=== PATIENT | female | born 1950 | race Caucasian/White ===

== ENCOUNTER → 2020-12-22 11:33 | Outpatient (CLI) | payer MEDICARE, SELFPAY ==
--- NOTE | ~2020-12-22 | XR_ITS ---
EXAMINATION: XR knee LT min 4V DATE: 12/22/2020 12:08 INDICATION: Left knee pain TECHNIQUE: Four views of the left knee were obtained. COMPARISON: None. FINDINGS: Alignment is normal. No fracture or osteochondral lesion. There is moderate osteoarthritis in the patellofemoral compartment and mild osteoarthritis in the remaining compartments. No joint eff usion/synovitis. Soft tissues are unremarkable. IMPRESSION: 1. Osteoarthritis without acute osseous abnormality. Reviewed, dictated and finalized at location B.
--- NOTE | ~2020-12-22 | XR_ITS ---
EXAMINATION: XR knee RT min 4V DATE: 12/22/2020 12:08 INDICATION: Right knee pain TECHNIQUE: Four views of the right knee were obtained. COMPARISON: None. FINDINGS: Alignment is normal. No fracture or osteochondral lesion. There is advanced osteoarthritis in the medial patellofemoral compartment and mild osteoarthritis in the remaining compartments. No rg int effusion/synovitis. Calcified atherosclerosis is noted. IMPRESSION: 1. Advanced osteoarthritis in the medial patellofemoral compartment without acute osseous abnormality . Reviewed, dictated and finalized at location B. IMPRESSION: 1. Advanced osteoarthritis in the medial patellofemoral compartment without acu te osseous abnormality.
== END ==
PROVIDERS: Visit Provider Physician Assistant
DX: M17.0 Bilateral primary osteoarthritis of knee (principal)
CPT/HCPCS: 73564

== ENCOUNTER → 2021-02-13 10:21 | Outpatient (CLI) | payer MEDICARE, SELFPAY ==
--- NOTE | ~2021-02-13 | DEXA_ITS ---
Bone Density Report Name: Laura Eddy Age: 70 Sex: Female Ethnicity: White Date of : 1950 Indication: postmenopausal; screening for osteoporosis; Referring Provider: Jovita Nunez Study: Bone densitometry was performed. Exam Date: February 13, 2021 Accession number: [id number] Bone Density: Region BMD T-score Z-score Classification AP Spine (L1-L4) 0.983 -0.6 1.4 Normal Femoral Neck (Left) 0.664 -1.7 0.1 Osteopenia Total Hip (Left) 0.849 -0.8 0.7 Normal Femoral Neck (Right) 0.631 -2.0 -0.2 Osteopenia Total Hip (Right) 0.802 -1.1 0.3 Osteopenia Total Hip Mean 0.826 -1.0 0.5 Normal World Health Organization criteria for BMD impression classify patients as: Normal (T-score at or above -1.0), Osteopenia (T-score between -1.0 and -2.5), or Osteoporosis (T-score at or below -2.5). 10-year Fracture Risk(1): Major Osteoporotic Fracture 11% Hip Fracture 1.8% Reported Risk Factors: [place] (), Neck BMD=0.631, BMI=34.1 (1) FRAX(R) Version 3.08. Fracture probability calculated for an untreated patient. Fracture probability may be lower if the patient has received treatment. Clinical Information Provided by Patient: Has used the following medications: Vitamin D Patient maximum height was 60 Menopause Age: 37 No regular weight bearing exercise Drinks caffeinated beverages Onset of menses at age 17 Number of children 2 Impression: The patient has low bone mass, based on the Right Femoral Neck T-score. The patient has an estimated ten-year risk of hip fracture of 1.8% and an estimated ten-year risk of major fracture of 11%, based on the WHO FRAX algorithm. Discussion: BONE DENSITY IS LOW AT ONE OR MORE SKELETAL SITES. This patient's lowest T-score is low at one or more skeletal sites. It meets the World Health Organization's (WHO) criteria for ?low bone mass? (T-score between -1.0 and -2.5). The patient's 10-year risk of fracture as calculated by FRAX is less than the threshold where pharmacological therapy is recommended by the National Osteoporosis Foundation (NOF). However, all treatment decisions require clinical judgment and consideration of individual patient factors, including patient preferences, comorbidities, previous drug use, risk factors not captured in the FRAX model (e.g., frailty, falls, vitamin D deficiency, increased bone turnover, interval significant decline in bone density) and possible under or overestimation of fracture risk by FRAX. The patient should follow a healthful lifestyle (good nutrition with adequate calcium and vitamin D, and appropriate weight-bearing exercise). Follow-Up: Consider repeating this study in 2 to 3 years to reassess this patient's status, or sooner if there is some new clinical indication. Reported by: JEFF on 02/13/2021
== END ==
PROVIDERS: PCP Family Medicine; Visit Provider Physician Assistant
DX: Z78.0 Asymptomatic menopausal state (principal); M85.89 Other specified disorders of bone density and structure, multiple sites
CPT/HCPCS: 77080

== ENCOUNTER 2021-09-12 12:57 | Outpatient (CLI) | payer MEDICARE, SELFPAY ==
[2021-09-12 13:20] LABS: Basophils Absolute Auto 0.1 K/mm3 (0.0-0.1); Basophils Percent Auto 1.1 % (0.2-1.2); Eosinophils Absolute Auto 0.2 K/mm3 (0-0.3); Hemoglobin 13.3 g/dL (12.0-15.0); Immature Granulocyte Absolute 0.01 K/mm3 (0.00-0.031); Immature Granulocyte Percent A 0.2 % (0-0.5); Lymphocytes Absolute Auto 1.68 K/mm3 (0.9-3.2); Lymphocytes Percent Auto 36.3 % (18.3-44.2); Mean Corpuscular HGB Conc 33.3 g/dl (32-36); Mean Corpuscular Hemoglobin 32.4 pg (26-34); Mean Corpuscular Volume 97.3 fl (80-100); Mean Platelet Volume 10.9 fl (7.4-10.4); Monocytes Absolute Auto 0.5 K/mm3 (0.1-0.6); Monocytes Percent Auto 10.4 % (2.6-8.5); Neutrophils Absolute Auto 2.2 K/mm3 (1.3-6.7); Platelet Count Result 185 k/mm3 (150-375); Red Blood Count 4.11 M/mm3 (4.2-5.4); Red Cell Distribution Width 11.8 % (11.5-14.5); White Blood Count 4.6 K/mm3 (4.5-10.0)
[2021-09-12 13:34] LABS: Alanine Aminotransferase 21 U/L (4-35); Albumin Level 4.6 g/dL (3.5-5.1); Alkaline Phosphatase 84 U/L (38-126); Anion Gap 6 mmol/L (8-16); Aspartate Amino Transferase 31 U/L (14-36); Bilirubin,Total 0.4 mg/dL (0.2-1.3); Blood Urea Nitrogen 26 mg/dL (7-17); Calcium 8.8 mg/dL (8.4-10.2); Carbon Dioxide 27 mmol/L (22-30); Chloride 103 mmol/L (98-107); Cholesterol 128 mg/dL (0-200); Estimated Glomerular Filt Rate 34; Glucose 107 mg/dL (65-110); HDL Direct 46 mg/dL; Potassium 4.6 mmol/L (3.4-5.0); Sodium 136 mmol/L (137-145); Triglycerides 63 mg/dL (<150)
[2021-09-12 13:45] LABS: LDL Cholesterol Direct 53 mg/dL
[2021-09-12 14:25] LABS: Vitamin B12 > 1000.0 pg/mL (239-931)
== END 2021-09-12 12:58 | disposition home or self-care (01) ==
PROVIDERS: PCP Family Medicine; Visit Provider Family Medicine
DX: I12.9 Hypertensive chronic kidney disease with stage 1 through stage 4 chronic kidney disease, or unspecified chronic kidney disease (principal); K21.9 Gastro-esophageal reflux disease without esophagitis; M85.80 Other specified disorders of bone density and structure, unspecified site
CPT/HCPCS: 36415; 80053; 80061; 82306; 82607; 82728; 85025

== ENCOUNTER 2022-01-25 08:52 | Outpatient (CLI) | payer MEDICARE, SELFPAY ==
--- NOTE | 2022-02-22 19:41 | WPDSLEEPSTUD ---
Sleep Study Date of Study: 01/25/22 Ordering Provider: Romeo Schofield MD Interpreting Physician: Rylee Rolon DO Sleep Study Type: CPAP Titration Height: 1.52 m Weight: 72.575 kg Body Mass Index: 31.2 Neck Circumference (inches): 14.5 [place]: 9 Reason for Sleep Study The patient had a polysomnogram on December 31, 2021 that showed an AHI of 11.3 when using a 4% criteria, a central apnea index of 0.7 and a REM AHI of 67.1. Sleep History The patient is a 71-year-old female with hypertension, GERD, hyperlipidemia, anxiety and recently diagnosed KUMAR that had a PAP Titration study ordered by her primary care physician. the patient denies awakening from sleep short of breath. She denies awakening at night with heartburn, belching or cough. She rarely snores and is never loud enough that others complain. She occasionally has trouble sleeping when she has a cold. She denies waking up gasping for air throughout the night. She denies having breathing problems at night observed by herself or others. She denies sweating excessively at night. She denies having heart palpitations or irregular heartbeats during the night. She denies falling asleep during the day and while driving. She denies sleep paralysis, cataplexy and hypnagogic / hypnopompic hallucinations. He denies having trouble at school or work due to sleepiness. She denies feeling afraid of going to sleep. She denies having nightmares. She denies remembering her dreams. She denies having racing thoughts. She rarely feels sad or depressed. She denies having anxiety. She denies having muscular tension. She denies noticing parts of her body jerk. She denies kicking during the night. He denies having crawling and aching feelings in her legs as well as leg pain during the night. The patient goes to bed between 10 to 10:30 p.m. on both weekdays and weekends. It takes her 2 hours to fall asleep. She wakes up once throughout the night for unknown reasons. He wakes up at 8:00 a.m. on both weekdays and weekends. She will stay in her bed for a few minutes after waking up in the morning. She currently lives with . She does not consume any caffeinated beverages within 2 hours of bedtime. She does not engage in physical exercise before bedtime. She will watch television before falling asleep. She will take naps in the afternoon or the evening and they are refreshing. She drinks 1 cup of coffee per day and 1 can of Coke per day. He denies tobacco, alcohol and recreational drug use. [facility] Past Medical History Medical History History of measles History of mumps Kidney disease with benign hypertension Macular degeneration Family History Family History Mother Hypertension Family history of Alzheimer's disease Father Family history of elevated blood lipids Family history of cardiovascular disease Acute myocardial infarction Sibling Family history of cardiovascular disease Acute myocardial infarction Other Family history of malignant neoplasm Family history of malignant neoplasm of male breast Social History Social History Smoking status: Never smoker Alcohol intake: never Medications Home Medications Medication Instructions Recorded Confirmed Type buspirone 10 mg tablet See Rx Instructions .Route 04/12/21 02/21/22 Rx .COMPLEX #360 tabs hydrochlorothiazide 25 mg tablet See Rx Instructions .Route 04/12/21 02/21/22 Rx .COMPLEX #90 tabs rosuvastatin 5 mg tablet See Rx Instructions .Route 04/12/21 02/21/22 Rx .COMPLEX #90 tabs citalopram 20 mg tablet 40 mg PO DAILY #180 tabs 09/18/21 02/21/22 Rx trazodone 50 mg tablet See Rx Instructions .Route 11/13/21 02/21/22 Rx .COMPLEX #90 tabs famotidine 20 mg tablet 20 mg PO BID #180 tabs 11/23/21 02/21/22 Rx melox
[2022-02-22 19:56] VITALS: BMI 31.2
== END 2022-01-26 07:16 | disposition home or self-care (01) ==
LOC: ANHCSM 08:53
PROVIDERS: PCP Family Medicine; Visit Provider Family Medicine
DX: G47.33 Obstructive sleep apnea (adult) (pediatric) (principal)
CPT/HCPCS: 95811

== ENCOUNTER 2022-09-25 12:24 | Outpatient (CLI) | payer MEDICARE, SELFPAY ==
--- NOTE | 2022-09-25 12:44 | ECHO_ITS ---
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 Strain analysis performed. Summary 1. Complete two-dimensional, color flow and Doppler transthoracic echocardiogram is performed. 2. Left ventricular chamber dimension is normal. 3. Left ventricular systolic function is normal, estimated at 60-65%. 4. The left ventricular diastolic function is abnormal. 5. E/e' 10 is mildly elevated. 6. Global longitudinal strain is normal at -19.9%. 7. Left atrial chamber dimension is mildly enlarged. 8. There is mild aortic valve sclerosis. 9. The mitral valve has moderately calcified annulus. 10. There is mild mitral valve regurgitation. 11. There is trace tricuspid valve regurgitation. Left Ventricle E/e' 10 is mildly elevated. Global longitudinal strain is normal at -19.9%. Left ventricular chamber dimension is normal. Left ventricular systolic function is normal, estimated at 60-65%. The left ventricular diastolic function is abnormal. Right Ventricle Right ventricular systolic function is normal and with normal TAPSE 2.2 cm. Right ventricular chamber dimension is normal. Left Atria Left atrial chamber dimension is mildly enlarged. Right Atria Right atrial chamber dimension is normal. Aortic Valve The aortic valve is trileaflet. There is mild aortic valve sclerosis. There is no aortic valve stenosis. There is no aortic valve regurgitation. Pulmonic Valve There is no pulmonic regurgitation. Mitral Valve The mitral valve has moderately calcified annulus. There is no mitral valve stenosis. There is mild mitral valve regurgitation. Tricuspid Valve There is trace tricuspid valve regurgitation. RVSP is not calculated due to an inadequate TR jet. Pericardium/Pleural There is no pericardial effusion. Inferior Vena Cava Normal inferior vena cava with >50% collapse upon inspiration consistent with normal right atrial pressure, 5 mmHg. Aorta The aortic root size at the sinus of Valsalva is normal. Left Ventricular Outflow Tract Name Value Normal LVOT 2D LVOT Diameter 2.0 cm LVOT Doppler LVOT Peak Gradient 5 mmHg LVOT Mean Gradient 2 mmHg LVOT VTI 24 cm LVOT VTI/AV VTI Ratio 0.7 LVOT Stroke Volume 76 ml LVOT CO 6.2 l/min LVOT CI 3.6 l/min/m2 Mitral Valve -------
== END 2022-09-25 12:25 | disposition home or self-care (01) ==
PROVIDERS: PCP Family Medicine; Visit Provider Physician Assistant
DX: I35.8 Other nonrheumatic aortic valve disorders (principal); I34.81 Nonrheumatic mitral (valve) annulus calcification; I34.0 Nonrheumatic mitral (valve) insufficiency
CPT/HCPCS: 93306

== ENCOUNTER → 2022-11-17 08:07 | Outpatient (CLI) | payer MEDICARE, SELFPAY ==
--- NOTE | ~2022-11-17 | MM_ITS ---
EXAMINATION: MM screening sima BI w cody HISTORY: Screening mammogram TECHNIQUE: Craniocaudal and mediolateral oblique 3-D tomosynthesis images were obtained and synthetic 2-D images were generated. CAD analysis was submitted and interpreted. COMPARISON: 11/07/2011 BREAST PARENCHYMAL COMPOSITION: There are scattered areas of fibroglandular density. FINDINGS: There is no evidence of suspicious mass, calcification, or architectural distortion to sugg est malignancy in either breast. There has been no suspicious interval change. IMPRESSION: 1. No mammographic evidence of malignancy. 2. Recommend routine screening mammography in one year. BI-RADS Category 1: Negative Reviewed, dictated and finalized at location A.
== END ==
PROVIDERS: PCP Physician Assistant; Visit Provider Physician Assistant
DX: Z12.31 Encounter for screening mammogram for malignant neoplasm of breast (principal)
CPT/HCPCS: 77063; 77067

== ENCOUNTER → 2023-02-15 10:10 | Outpatient (CLI) | payer MEDICARE, SELFPAY ==
--- NOTE | ~2023-02-15 | DEXA_ITS ---
Bone Density Report Name: KAREN LE Age: 72 Sex: Female Ethnicity: White Date of : 1950 Indication: osteopenia; postmenopausal Referring Provider: Thomas Longoria Study: Bone densitometry was performed. Exam Date: February 15, 2023 Accession number: [id number] Bone Density: Region BMD T-score Z-score Classification AP Spine (L1-L4) 0.963 -0.8 1.4 Normal Femoral Neck (Left) 0.583 -2.4 -0.5 Osteopenia Total Hip (Left) 0.749 -1.6 0.0 Osteopenia Femoral Neck (Right) 0.534 -2.8 -1.0 Osteoporosis Total Hip (Right) 0.698 -2.0 -0.4 Osteopenia Total Hip Mean 0.724 -1.8 -0.2 Osteopenia World Health Organization criteria for BMD impression classify patients as: Normal (T-score at or above -1.0), Osteopenia (T-score between -1.0 and -2.5), or Osteoporosis (T-score at or below -2.5). 10-year Fracture Risk: FRAX not reported because: Some T-score for Spine Total or Hip Total or Femoral Neck at or below -2.5 Previous Exams: Region Exam Age BMD T-score BMD Change BMD Change Date g/cm2 vs Baseline vs Previous AP Spine(L1-L4) 02/15/2023 72 0.963 -0.8 -0.020 -0.020 02/13/2021 70 0.983 -0.6 Total Hip(Left) 02/15/2023 72 0.749 -1.6 -0.101* -0.101* 02/13/2021 70 0.849 -0.8 Total Hip(Right) 02/15/2023 72 0.698 -2.0 -0.104* -0.104* 02/13/2021 70 0.802 -1.1 *Denotes significance at 95% confidence level, LSC for AP Spine = 0.022 g/cm2, LSC for Total Hip = 0.027 g/cm2 Clinical Information Provided by Patient: Has used the following medications: Vitamin D Patient maximum height was 60 Menopause Age: 37 No regular weight bearing exercise Drinks caffeinated beverages Onset of menses at age 17 Number of children 2 Impression: The patient has osteoporosis, based on the Right Femoral Neck T-score. The BMD for the Total Hip(Left) decreased, changing by -0.101 since the last DXA exam. The BMD for the Total Hip(Right) decreased, changing by -0.104 since the last DXA exam. Discussion: INCREASED RISK OF FRACTURE. BONE DENSITY IS UNDESIRABLY LOW AT ONE OR MORE SKELETAL SITES, CONSISTENT WITH POSTMENOPAUSAL OSTEOPOROSIS. This patient's lowest T-score meets the World Health Organization's (WHO) criteria for osteoporosis at one or more sites (T-score -2.5 or below). In untreated patients, the risk of osteoporotic fracture increases approximately two-fold for each 1.0 SD decrease in T-score. Low b
== END ==
PROVIDERS: PCP Physician Assistant; Visit Provider Physician Assistant
DX: Z78.0 Asymptomatic menopausal state (principal); M85.89 Other specified disorders of bone density and structure, multiple sites; M81.0 Age-related osteoporosis without current pathological fracture
CPT/HCPCS: 77080

== ENCOUNTER → 2023-03-21 13:46 | Outpatient (CLI) | payer MEDICARE, SELFPAY ==
--- NOTE | ~2023-03-21 | XR_ITS ---
EXAMINATION: XR hip LT 2V w AP pelvis INDICATION: Left hip pain TECHNIQUE: AP view the pelvis and two views of the left hip are obtained. COMPARISON: 11/26/2018 FINDINGS: Bone alignment is normal. There is no fracture. Calcified atherosclerosis is noted. There i s severe lower lumbar spondylosis. IMPRESSION: 1. No acute osseous abnormality. Reviewed, dictated and finalized at location F.
== END ==
PROVIDERS: PCP Physician Assistant; Visit Provider Physician Assistant
DX: M25.552 Pain in left hip (principal)
CPT/HCPCS: 73502

== ENCOUNTER 2023-10-10 07:41 | Outpatient (CLI) | payer MEDICARE, SELFPAY ==
--- NOTE | ~2023-10-10 | US_ITS ---
Renal-Bladder ultrasound Clinical History: Abnormal serum creatinine Technique: Real-time sonographic imaging of the kidneys and urinary bladder was performed. Findings: The right kidney measures 9.5 cm in length and the left kidney measures 9.8 cm. There is no hydronephrosis or renal calculus identified. Renal cortical echogenicity is within normal limits. No renal mass lesion is identified. The urinary bladder is moderately distended at the time of this exam. No intraluminal echoes are iden tified. No abnormal wall thickening is seen. Impression: Unremarkable ultrasound of the kidneys and urinary bladder. Reviewed, dictated and finalized at location M. Impression: Unremarkable ultrasound of the kidneys and urinary bladder.
== END 2023-10-10 07:42 ==
LOC: MICIMG 07:42
PROVIDERS: PCP Physician Assistant; Visit Provider Physician Assistant
DX: R79.89 Other specified abnormal findings of blood chemistry (principal)
CPT/HCPCS: 76775

== ENCOUNTER 2023-12-30 12:06 | Outpatient (CLI) | payer MEDICARE, SELFPAY ==
--- NOTE | ~2023-12-30 | MM_ITS ---
EXAMINATION: MM screening sima BI w cody HISTORY: Screening TECHNIQUE: Craniocaudal and mediolateral oblique 3-D tomosynthesis images were obtained and synthetic 2-D images were generated. CAD analysis was submitted and interpreted. COMPARISON: Comparison to multiple prior studies sequentially, with oldest reviewed study dated 11/2011. BREAST PARENCHYMAL COMPOSITION: Not dense: There are scattered areas of fibroglandular density. FINDINGS: There is no evidence of suspicious mass, calcification, or architectural distortion to sugg est malignancy in either breast. There has been no suspicious interval change. IMPRESSION: 1. No mammographic evidence of malignancy. 2. Recommend routine screening mammography in one year. BI-RADS Category 1: Negative Reviewed, dictated and finalized at location B.
== END 2023-12-30 12:07 ==
LOC: MICIMG 12:07
PROVIDERS: PCP Physician Assistant; Visit Provider Physician Assistant
DX: Z12.31 Encounter for screening mammogram for malignant neoplasm of breast (principal)
CPT/HCPCS: 77063; 77067

== ENCOUNTER 2024-08-27 13:36 | Inpatient (IN) | payer MEDICARE, SELFPAY ==
[2024-08-27] VITALS (12 sets, daily range): BP systolic 100–118; BP diastolic 42–73; PULSE 103–142; RESP 13–20; TEMP 36.7–37; O2SAT 92–98; BMI 29.7
--- NOTE | ~2024-08-27 | XR_ITS ---
EXAMINATION: XR chest 2V DATE: 08/27/2024 14:32 INDICATION: Chest pain. TECHNIQUE: Frontal and lateral views of the chest were obtained. COMPARISON: None. FINDINGS: There is no pneumonia, pleural effusion, or pneumothorax. The heart size is normal. IMPRESSION: 1. No acute cardiopulmonary disease. Reviewed, dictated and finalized at location A.
--- NOTE | ~2024-08-27 | US_ITS ---
EXAMINATION: US thyroid DATE: 08/27/2024 16:27 INDICATION: Hyperthyroidism TECHNIQUE: Multiple ultrasound images of the thyroid were obtained. COMPARISON: None. FINDINGS: The right thyroid lobe measures 4.4 x 1.6 x 1.3 cm. The left thyroid lobe measures 3.5 x 1.8 x 1.5 c m. No discrete nodules identified. There is normal echotexture, echogenicity and vascular flow throu ghout the thyroid gland. IMPRESSION: 1. Normal thyroid ultrasound. Reviewed, dictated and finalized at location B.
--- NOTE | ~2024-08-27 | US_ITS ---
EXAM: PELVIC ULTRASOUND HISTORY: assess for ovarian mass COMPARISON: None. FINDINGS: UTERUS: 7.8 x 2.1 x 4.6 cm. The uterus is anteverted and anteflexed. Echogenic foci within the posterior fundus, possibly related to prior fibroid disease. Noncontrast en hanced CT examination may be performed for further evaluation. The endometrial complex measures 4.3 mm. RIGHT OVARY: Despite prolonged interrogation, the right ovary was not visualized. LEFT OVARY: Despite prolonged interrogation, the left ovary was not visualized No free fluid is identified within the pelvis. IMPRESSION: Findings within the uterus suggesting prior fibroid disease. Despite prolonged interrogation, neither ovary was visualized. Unfortunately during the transvaginal portion of the examination, the bladder was full. Repeat evaluation following bladder emptying is recommended for complete interrogation. Reviewed, dictated and finalized at location A. IMPRESSION: Findings within the uterus suggesting prior fibroid disease. Despite prolonged interrogation, neither ovary was visualized. Unfortunately during the transvaginal portion of the examination, the bladder w as full. Repeat evaluation following bladder emptying is recommended for complete interr ogation.
--- NOTE | 2024-08-27 13:43 | ECG_ITS ---
Test Date: 2024-08-27 13:44:02 Measurements Intervals [place] Rate: 132 P: 0 WI: 0 QRS: 18 QRSD: 73 T: 35 QT: 282 QTc: 418 Interpretive Statements ATRIAL FIBRILLATION WITH RAPID VENTRICULAR RESPONSE ABNORMAL RHYTHM ECG No previous ECG available for comparison Electronically Signed On 08-27-2024 14:39:53 CDT by Jono Alcazar M.D.
--- NOTE | 2024-08-27 13:45 | ED.ARRPALP ---
HPI - Arrhythmia/Palpitations General Chief Complaint: Arrhythmia/Palpitations <Liya Judge PA-C - Last Filed: 08/27/24 13:49> Stated Complaint: heart racing <Liya Judge PA-C - Last Filed: 08/27/24 13:49> Time Seen by Provider: 08/27/24 13:46 <Liya Judge PA-C - Last Filed: 08/27/24 13:49> Focused HPI: Patient is a 74 y/o female who presents the ED with report of palpitations. Patient reports she developed palpitations a few days ago described as though her heart was racing. Her daughter came over and her pulse rate was normal at that time. Patient reports she developed recurrent symptoms today. Her Apple watch notified her that she had been resting for 10 minutes in her heart rate was consistently over 120. She then prompted here for further evaluation. No previous history of AFib. Denies chest pain or shortness of breath. GENERAL: Well-appearing, well-nourished, and in no acute distress. HEAD: Normocephalic, atraumatic. CHEST: Clear to auscultation. ?No respiratory distress. HEART: Tachycardic with irregular rhythm.?Peripheral pulses intact. NEURO: ?Alert and oriented x3. Patient screened in triage and initial orders placed.? ?Additional care and disposition to be based upon?diagnostic testing and treatment. <Liya Judge PA-C - Last Filed: 08/27/24 13:49> Source: patient <Liya Judge PA-C - Last Filed: 08/27/24 13:49> Mode of arrival: ambulatory <SUZI Wilson Last Filed: 08/27/24 13:49> Limitations: no limitations <Liya Judge PA-C - Last Filed: 08/27/24 13:49> History of Present Illness HPI narrative: Agree with the HPI above. Patient started feeling nauseous and unwell on Saturday which she noticed her heart was racing. Apple watch at bedside shows that was between 120-140 beats per minute. No history of AFib irregular heart rhythm. <Roscoe Demarco MD - Last Filed: 08/27/24 20:07> Related Data Home Medications: Home Medications ?Medication ?Instructions ?Recorded ?Confirmed ?Last Taken ?Type cholecalciferol (vitamin D3) 50 50 mcg PO DAILY 03/08/23 08/27/24 08/25/24 History mcg (2,000 unit) capsule lisinopril 20 mg tablet 20 mg PO HS 08/27/24 08/27/24 08/26/24 History <Liya Judge PA-C - Last Filed: 08/27/24 13:49> Allergies/Adverse Reactions: Allergies Allergy/AdvReac Type Severity Reaction Status Date / Time atorvastatin Allergy Unknown cognitive Verified 08/27/24 14:03 impairment vilazodone (Viibryd) Allergy Unknown complete Verified 08/27/24 14:03 loss of taste donepezil AdvReac Intermediate nausea, Verified 08/27/24 14:03 diarrhea, nightmares <Liya Judge PA-C - Last Filed: 08/27/24 13:49> Review of Systems Review of Systems: As reviewed above in HPI <Roscoe Demarco MD - Last Filed: 08/27/24 20:07> [facility] Past Medical History Medical History: Medical History Obstructive sleep apnea Moderate dementia Macular degeneration GERD without esophagitis Osteopenia Mild aortic valve sclerosis echo 2019 Mixed hyperlipidemia Generalized anxiety disorder Essential hypertension Pes anserine bursitis History of mumps History of measles <Liya Judge PA-C - Last Filed: 08/27/24 13:49> Family History Family History: Family History Mother Family history of Alzheimer's disease Hypertension Father Family history of cardiovascular disease Family history of elevated blood lipids Acute myocardial infarction Sibling Family history of cardiovascular disease Acute myocardial infarction Son Malignant hyperthermia Other Family history of malignant neoplasm Family history of malignant neoplasm of male breast <SUZI Wilson Last Filed: 08/27/24 13:49> Social History Social History: Social History Smoking status: Never smoker Second hand tobacco smoke exposure: No Alcohol intake: never Substance use: never Do You Feel Safe in your Home?: Yes Lack of Transportation: YES Lack of Food: Never True Current Housing: I Have Housing Concerned About Future Housing: No Difficulty Paying Gas/Electric Bills: No Difficulty Paying for Meds: No Currently Unemployed: No Education: Master's Degree or Higher Difficulty w/ Childcare or Family Care: No Living arrangements: with family Gender identity (if verbalized by the patient): Female Spiritual care concerns: No <Liya Judge PA-C - Last Filed: 08/27/24 13:49> Exam Narrative: GENERAL: [Well-appearing, well-nourished, and in no acute distress.] HEAD: [Normocephalic, atraumatic.] EYES: [PERRLA and EOMI.] ENT: Nares clear, no rhinorrhea or epistaxis. Mucous membranes moist. NECK: Supple. CHEST: [Clear to auscultation. No respiratory distress.] HEART: Irregular rate and rhythm. No murmur heard. [Normal peripheral pulses.] ABDOMEN: [Soft, nondistended], [nontender], [No rigidity or guarding] EXTREMITIES: Normal range of motion. [No edema.] SKIN: Warm, dry, no rash. NEURO: [No focal deficits]. Alert and oriented [x3.] PSYCH: [Normal mood and affect.] <Roscoe Demarco MD - Last Filed: 08/27/24 20:07> Course Vital Signs Vital signs: Vital Signs Pulse Rate 142 H 08/27/24 13:57 Temperature 36.8 C 08/27/24 19:54 Pulse Rate 107 H 08/27/24 19:54 Respiratory Rate 16 08/27/24 19:54 Blood Pressure 102/58 L 08/27/24 19:54 Pulse Oximetry 98 08/27/24 19:54 Oxygen Delivery Room Air 08/27/24 20:00 <Liya Judge PA-C - Last Filed: 08/27/24 13:49> Vital Signs Pulse Rate 142 H 08/27/24 13:57 Temperature 36.8 C 08/27/24 19:54 Pulse Rate 107 H 08/27/24 19:54 Respiratory Rate 16 08/27/24 19:54 Blood Pressure 102/58 L 08/27/24 19:54 Pulse Oximetry 98 08/27/24 19:54 Oxygen Delivery Room Air 08/27/24 20:00 <Roscoe Demarco MD - Last Filed: 08/27/24 20:07> MDM - Arrhythmia/Palpitations MDM Narrative Medical decision making narrative: MSE by ABE in triage. <Liya Judge PA-C - Last Filed: 08/27/24 13:49> MSE by ABE in triage. 74-year-old female presenting with signs and symptoms of AFib RVR. She has a history of hypertension and chronic kidney disease but otherwise no history of diabetes or irregular heart rhythms in the past. Symptoms going on for about 5 days now. She has a high chads Vasc score of 3 given her age and risk factors. No anticoagulation use. Takes lisinopril and hydrochlorothiazide for blood pressure control. She has an irregular rate and rhythm on the monitor and on pulse examination. Pulse between 372037 beats per minute, normal blood pressure without any hypotension. She is mentating appropriately. Normal examination aside from the regular rhythm. Suspicion for new onset dysrhythmia and AFib/flutter. EKG confirms AFib RVR, laboratory studies ordered. Assessment for potential electrolyte deficiencies, thyroid issues, infectious pathology the history during this but she has otherwise been healthy. Low suspicion for occlusive event such as MA or ACS. CBC CMP, troponin, EKG, chest x-ray obtained. She was given Eliquis and Cardizem. Cardizem bolus and drip initiated. Placed on quality assurance monitor chassis and pulse oximetry and re-evaluated frequently. Patient's laboratory studies showed no leukocytosis or significant anemia although it is lower than her previous levels she has been similarly low at 11.9 in 2022. Normal platelet count. Coagulation studies are normal. BUN elevated from baseline, creatinine about her baseline. GFR is slightly decreased. Normal glucose and LFTs. Negative initial troponin.-3 hour troponin. TSH was nearly undetectable, free flex T4 was high indicative of hyperthyroidism which could explain her new onset AFib without any cardiac disease history. Thyroid ultrasound ordered. Chest x-ray shows no acute disease. Repeat EKG after 3 hours shows better rate control but still having atrial fibrillation. Patient is not doing better on the Cardizem infusion, heart rate in the low 110s, 100s. Blood pressure holding. Spoke to the mid-level provider currently covering the hospitalist team who accepted the patient to IMU bed for continued evaluation and treatment. Family members made aware of the admission and patient agreeable to it. <Roscoe Demarco MD - Last Filed: 08/27/24 20:07> Medical Records Attestation: I reviewed the patient's medical records. <Roscoe Demarco MD - Last Filed: 08/27/24 20:07> Lab Data Attestation: I reviewed the patient's lab results. <Roscoe Demarco MD - Last Filed: 08/27/24 20:07> Result diagrams: 08/27/24 13:57 08/27/24 13:57 <Liya Judge PA-C - Last Filed: 08/27/24 13:49> Labs: Lab Results 08/27/24 Range/Units 13:57 WBC 4.4 L (4.5-10.0) K/mm3 RBC 3.66 L (4.2-5.4) M/mm3 Hgb 11.4 L (12.0-15.0) g/dL Hct 34.1 L (37.0-47.0) % MCV 93.2 (80-100) fl MCH 31.1 (26-34) pg MCHC 33.4 (32-36) g/dl RDW 11.0 L (11.5-14.5) % Plt Count 214 (150-375) k/mm3 MPV 10.5 H (7.4-10.4) fl Immature Gran % (Auto) 0.2 (0-0.5) % Neut % (Auto) 56.8 (45.5-73.1) % Lymph % (Auto) 29.2 (18.3-44.2) % [place] % (Auto) 11.9 H (2.6-8.5) % Eos % (Auto) 1.4 (0-4.4) % Baso % (Auto) 0.5 (0.2-1.2) % Lymph # (Auto) 1.28 (0.9-3.2) K/mm3 [place] # (Auto) 0.5 (0.1-0.6) K/mm3 Eos # (Auto) 0.1 (0-0.3) K/mm3 Baso # (Auto) 0.0 (0.0-0.1) K/mm3 Abs Immat Gran (auto) 0.01 (0.00-0.031) K/mm3 Absolute Neuts (auto) 2.5 (1.3-6.7) K/mm3 Absolute Nucleated RBC 0.000 (0.0-0.012) K/mm3 Nucleated RBC % 0.0 (0.0-0.2) % PT 14.2 (11.1-14.7) Seconds INR 1.1 APTT 32.6 (22.3-36.8) Seconds Sodium 139 (137-145) mmol/L Potassium 4.4 (3.4-5.0) mmol/L Chloride 104 (98-107) mmol/L Carbon Dioxide 22 (22-30) mmol/L Anion Gap 13 H (4-12) mmol/L BUN 38 H D (7-17) mg/dL Creatinine 1.43 H (0.7-1.0) mg/dL Estim Creat Clear Calc 28 ml/min Estimated GFR 36 L (59 - ) Glucose 109 (65-110) mg/dL Calcium 9.1 (8.4-10.2) mg/dL Magnesium 2.0 (1.6-2.3) mg/dL Total Bilirubin 0.5 (0.2-1.3) mg/dL AST 97 H (14-36) U/L ALT 153 H (6-35) U/L Alkaline Phosphatase 57 (38-126) U/L Troponin I < 0.012 (0.000-0.034) ng/mL Total Protein 7.0 (6.3-8.2) g/dL Albumin 4.2 (3.5-5.1) g/dL Lipase 258 (23-300) U/L TSH (Reflex) < 0.015 L (0.465-4.68) uIU/mL Free T4 5.95 H (0.78-2.19) ng/dL <Liya Judge PA-C - Last Filed: 08/27/24 13:49> Lab Results 08/27/24 Range/Units 13:57 WBC 4.4 L (4.5-10.0) K/mm3 RBC 3.66 L (4.2-5.4) M/mm3 Hgb 11.4 L (12.0-15.0) g/dL Hct 34.1 L (37.0-47.0) % MCV 93.2 (80-100) fl MCH 31.1 (26-34) pg MCHC 33.4 (32-36) g/dl RDW 11.0 L (11.5-14.5) % Plt Count 214 (150-375) k/mm3 MPV 10.5 H (7.4-10.4) fl Immature Gran % (Auto) 0.2 (0-0.5) % Neut % (Auto) 56.8 (45.5-73.1) % Lymph % (Auto) 29.2 (18.3-44.2) % [place] % (Auto) 11.9 H (2.6-8.5) % Eos % (Auto) 1.4 (0-4.4) % Baso % (Auto) 0.5 (0.2-1.2) % Lymph # (Auto) 1.28 (0.9-3.2) K/mm3 [place] # (Auto) 0.5 (0.1-0.6) K/mm3 Eos # (Auto) 0.1 (0-0.3) K/mm3 Baso # (Auto) 0.0 (0.0-0.1) K/mm3 Abs Immat Gran (auto) 0.01 (0.00-0.031) K/mm3 Absolute Neuts (auto) 2.5 (1.3-6.7) K/mm3 Absolute Nucleated RBC 0.000 (0.0-0.012) K/mm3 Nucleated RBC % 0.0 (0.0-0.2) % PT 14.2 (11.1-14.7) Seconds INR 1.1 APTT 32.6 (22.3-36.8) Seconds Sodium 139 (137-145) mmol/L Potassium 4.4 (3.4-5.0) mmol/L Chloride 104 (98-107) mmol/L Carbon Dioxide 22 (22-30) mmol/L Anion Gap 13 H (4-12) mmol/L BUN 38 H D (7-17) mg/dL Creatinine 1.43 H (0.7-1.0) mg/dL Estim Creat Clear Calc 28 ml/min Estimated GFR 36 L (59 - ) Glucose 109 (65-110) mg/dL Calcium 9.1 (8.4-10.2) mg/dL Magnesium 2.0 (1.6-2.3) mg/dL Total Bilirubin 0.5 (0.2-1.3) mg/dL AST 97 H (14-36) U/L ALT 153 H (6-35) U/L Alkaline Phosphatase 57 (38-126) U/L Troponin I < 0.012 (0.000-0.034) ng/mL Total Protein 7.0 (6.3-8.2) g/dL Albumin 4.2 (3.5-5.1) g/dL Lipase 258 (23-300) U/L TSH (Reflex) < 0.015 L (0.465-4.68) uIU/mL Free T4 5.95 H (0.78-2.19) ng/dL <Roscoe Demarco MD - Last Filed: 08/27/24 20:07> Imaging Data Attestation: I personally reviewed and interpreted this imaging study as follows: <Roscoe Demarco MD - Last Filed: 08/27/24 20:07> My impression: Impressions Chest X-Ray 08/27/24 14:34 IMPRESSION: 1. No acute cardiopulmonary disease. <Roscoe Demarco MD - Last Filed: 08/27/24 20:07> Critical Care Time Critical Care Time Critical Care Time: Yes <Roscoe Demarco MD - Last Filed: 08/27/24 20:07> Total Critical Care Time: 35 <Roscoe Demarco MD - Last Filed: 08/27/24 20:07> Discharge Plan Discharge Clinical Impression: Atrial fibrillation with rapid ventricular response, Hyperthyroidism <SUZI Wilson Last Filed: 08/27/24 13:49> Patient Disposition: Still a Patient <Liya Judge PA-C - Last Filed: 08/27/24 13:49> Condition: Stable <Liya Judge PA-C - Last Filed: 08/27/24 13:49> Time of Disposition: 20:07 <Liya Judge PA-C - Last Filed: 08/27/24 13:49> 20:07 <Roscoe Demarco MD - Last Filed: 08/27/24 20:07>
[2024-08-27 14:08] LABS: Basophils Percent Auto 0.5 % (0.2-1.2); Eosinophils Absolute Auto 0.1 K/mm3 (0-0.3); Eosinophils Percent Auto 1.4 % (0-4.4); Hematocrit 34.1 % (37.0-47.0); Hemoglobin 11.4 g/dL (12.0-15.0); Immature Granulocyte Absolute 0.01 K/mm3 (0.00-0.031); Immature Granulocyte Percent A 0.2 % (0-0.5); Lymphocytes Absolute Auto 1.28 K/mm3 (0.9-3.2); Lymphocytes Percent Auto 29.2 % (18.3-44.2); Mean Corpuscular HGB Conc 33.4 g/dl (32-36); Mean Corpuscular Hemoglobin 31.1 pg (26-34); Mean Corpuscular Volume 93.2 fl (80-100); Mean Platelet Volume 10.5 fl (7.4-10.4); Monocytes Absolute Auto 0.5 K/mm3 (0.1-0.6); Monocytes Percent Auto 11.9 % (2.6-8.5); Neutrophils Absolute Auto 2.5 K/mm3 (1.3-6.7); Neutrophils Percent Auto 56.8 % (45.5-73.1); Platelet Count Result 214 k/mm3 (150-375); Red Blood Count 3.66 M/mm3 (4.2-5.4); White Blood Count 4.4 K/mm3 (4.5-10.0)
[2024-08-27 14:17] LABS: Alanine Aminotransferase 153 U/L (6-35); Albumin Level 4.2 g/dL (3.5-5.1); Alkaline Phosphatase 57 U/L (38-126); Anion Gap 13 mmol/L (4-12); Aspartate Amino Transferase 97 U/L (14-36); Bilirubin,Total 0.5 mg/dL (0.2-1.3); Blood Urea Nitrogen 38 mg/dL (7-17); Calcium 9.1 mg/dL (8.4-10.2); Carbon Dioxide 22 mmol/L (22-30); Chloride 104 mmol/L (98-107); Estimated CRCL calculation 28 ml/min; Estimated Glomerular Filt Rate 36; Glucose 109 mg/dL (65-110); Lipase 258 U/L (23-300); Potassium 4.4 mmol/L (3.4-5.0); Sodium 139 mmol/L (137-145)
[2024-08-27 14:22] LABS: INR 1.1; Prothrombin Time 14.2 Seconds (11.1-14.7)
[2024-08-27 14:23] LABS: Partial Thromboplastin Time 32.6 Seconds (22.3-36.8)
--- OUTSIDE RECORDS SUMMARY | 2024-08-27 14:25 | XMS_ITS | Referral Summary ---
Author Organization [facility] Address [address] [place] [address] Care Team Providers Care Vulnerability Assessment Analyst Name Role Phone Norma Schofield MD Primary Care Provider + Allergies No known active allergies Medications citalopram (CeleXA) 20 mg tablet 40 mg every morning 8 Active lisinopriL (PRINIVIL,ZESTR IL) 20 mg tablet daily 8 Active traZODone (DESYREL) 50 mg tablet 25 mg nightly 8 Active famotidine (PEPCID) 20 mg tablet Take 20 mg by mouth 2 (two) times a day 2 Active hydroCHLOROthia zide (HYDRODIURIL) 25 mg tablet daily 2 Active meloxicam (MOBIC) 15 mg tablet 2 Active rosuvastatin (CRESTOR) 5 mg tablet Take by mouth daily 9 Active busPIRone (BUSPAR) 10 mg tablet 10 mg 2 (two) times a day 2 Active VIT C,H-SJ-JVTSB-GLORIA TEIN-ZEAXAN ORAL Take 1 capsule by mouth 2 (two) times a day PreserVision AREDS Active melatonin 5 mg tablet Take 7.5 mg by mouth nightly Active fexofenadine (GABE) 180 mg tablet Take 180 mg by mouth daily Active Ozempic 0.25 mg or 0.5 mg(2 mg/1.5 mL) pen injector injection ADMINISTER 0.5 MG UNDER THE SKIN WEEKLY Active Active Problems Problem Noted Date Diagnosed Date Vascular dementia with behavior disturbance 03/03 Lack of motivation 03/20/2022 HLD (hyperlipidemia) CKD (chronic kidney disease) Macular degeneration Spinal stenosis Cerebrovascular disease Social History Tobacco Use Types Packs/Day Years Used Date Smoking Tobacco: Never Smokeless Tobacco: Never Tobacco Cessation:Counseling Given: Not Answered Personal Safety Answer Date Recorded Getting School Help Needed Not on file 06/04 Comments Unknown Sex and Gender Information Value Date Recorded Sex Assigned at Not on file Legal Sex 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 Gender Identity Not on file Sexual Orientation Not on file 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 Not on file Not on file Not on file Last Filed Vital Signs Vital Sign Reading Time Taken Comments Blood Pressure 115/69 03/20/2022 7:55 AM CDT Pulse 83 03/20/2022 7:55 AM CDT Temperature 36.7 C (98.1 F) 03/20/2022 7:55 AM CDT Respiratory Rate - - Oxygen Saturation 98% 03/20/2022 7:55 AM CDT Inhaled Oxygen Concentration - - Weight 74.8 kg (165 lb) 03/20/2022 7:55 AM CDT Height 154.9 cm (5' 1 ) 03/20/2022 7:55 AM CDT Body Mass Index 31.18 03/20/2022 7:55 AM CDT Plan of Treatment Not on file Procedures Procedure Name Priority Date/Time Associated Diagnosis Comments SCREENING MAMMOGRAM BILATERAL W SATHISH Schedule Routine, Read Routine (OP Routine) 08/07/2021 12:29 PM OPERATING SYSTEMS PROGRAMMER Screening mammogram, encounter for DEXA AXIAL SKELETON BONE DENSITY 1 OR MORE SITES Routine 12/23/2015 11:36 AM CDT from Last 3 Months or Most Recently Relevant to Health Maintenance Results * Screening Mammogram Bilateral W Sathish (08/07/2021 12:29 PM OPERATING SYSTEMS PROGRAMMER) Anatomical Region Laterality Modality Breast Bilateral Mammography Narrative 08/07/2021 1:16 PM OPERATING SYSTEMS PROGRAMMER Examination: Screening Mammogram Bilateral W Sathish: 08/07/21 Clinical: Screening mammogram, encounter for. Prior Study Comparisons: Comparison was made to the prior available relevant studies at the time of interpretation. Findings: Bilateral No significant masses, malignant type calcifications, skin thickening, nipple retraction, or significant lymphadenopathy is noted in either breast. The CAD review showed no significant findings. The breasts have scattered areas of fibroglandular density. The patient will be notified of results by letter. Impression: BI-RADS ATLAS category (overall): 1 - Negative There is no mammographic evidence of malignancy. Routine Screening Mammogram in 1 Yr is recommended for bilateral Overall Assessment: 1 - Negative us Self Screening Mammogram IMG MAMMO PROCEDURES Fi nal Result * DEXA Axial Skeleton Bone Density Multi Site (12/23/2015 11:36 AM CDT) Anatomical Region Laterality Modality Body N/A Radiographic Peyton ging 12/23/2015 11:3 6 AM CDT Narrative 12/23/2015 12:09 PM CDT EXAM: Bone mineral density [facility]. HISTORY: Postmenopausal. Assess for osteoporosis. DXA BMD was done at [facility] on a [employer] S[employer] CI. Precision testing at this site has resulted in a least significant change of: Lumbar spine 0.035 g/sq cm Hip 0.025 g/sq cm BMD L1-L4 is 0.907 g/sq cm corresponding to a T score of -1.3. BMD left femoral neck is 0.652 g/sq cm corresponding to a T score of -1.8. BMD total left hip is 0.803 g/sq cm corresponding to a T score of -1.1. COMPARISON: None. IMPRESSION: Low bone mass (osteopenia) which depending on the clinical circumstances may result in a moderate increased risk of fragility fracture. If followup is to be done, for technical reasons, it should be performed on this same machine. Electronically signed by: Alexsander Vidal M.D. Radiologist: ALEXSANDER VIDAL MD Attending: ABIOLA VAZQUEZ M.D. Requesting: PAIGE ROBLERO Requesting Requesting ID: [id number] Attending Attending ID: [id number] Completed Time: 12/23/2015 11:36 AM Dictated Time: 12/23/2015 12:09 AM Transcribed Time: 12/23/2015 12:09 AM Signed by: ALEXSANDER VIDAL MD on 12/23/2015 12:09 AM Report To 1 ID: [id number] Report To 1 Name: NORMA SCHOFIELD Report To 1 FAX: Report To 2 ID: Report To 2 Name: , Report To 2 FAX: Report To 3 ID: Report To 3 Name: , Report To 3 FAX: NextGen Order #: Procedure Note Provider, MD Naomi - 09/27/2016 EXAM: Bone mineral density [facility]. HISTORY: Postmenopausal. Assess for osteoporosis. DXA BMD was done at [facility] on a [employer] CI. Precision testing at this site has resulted in a least significant change of: Lumbar spine 0.035 g/sq cm Hip 0.025 g/sq cm BMD L1-L4 is 0.907 g/sq cm corresponding to a T score of -1.3. BMD left femoral neck is 0.652 g/sq cm corresponding to a T score of -1.8. BMD total left hip is 0.803 g/sq cm corresponding to a T score of -1.1. COMPARISON: None. IMPRESSION: Low bone mass (osteopenia) which depending on the clinical circumstances may result in a moderate increased risk of fragility fracture. If followup is to be done, for technical reasons, it should be performed on this same machine. Electronically signed by: Alexsander Vidal M.D. Radiologist: ALEXSANDER VIDAL MD Attending: ABIOLA VAZQUEZ M.D. Requesting: PAIGE ROBLERO Requesting Requesting ID: [id number] Attending Attending ID: [id number] Completed Time: 12/23/2015 11:36 AM Dictated Time: 12/23/2015 12:09 AM Transcribed Time: 12/23/2015 12:09 AM Signed by: ALEXSANDER VIDAL MD on 12/23/2015 12:09 AM Report To 1 ID: [id number] Report To 1 Name: NORMA SCHOFIELD Report To 1 FAX: Report To 2 ID: Report To 2 Name: , Report To 2 FAX: Report To 3 ID: Report To 3 Name: , Report To 3 FAX: NextGen Order #: Historical Provider MD NGUYEN DXA PROCEDURES Final Result from Last 3 Months or Most Recently Relevant to Health Maintenance Insurance [facility] UHC MEDICARE ADVANTAGE [facility] MEDIC[facility] Address: [address] [address] [place] [address] [facility] MEDICARE ADVANTAGE [facility] HMO/PPO Address: [address] [address] [place] [address] [facility] MEDICARE ADVANTAGE Care Teams Vulnerability Assessment Analyst Relationship Specialty Start Date End Date Norma Schofield MD PCP - General 01/16/18
--- OUTSIDE RECORDS SUMMARY | 2024-08-27 14:25 | XMS_ITS | Clinical Summary ---
Author Organization [employer] [address] Address [address] [place] [address] Care Team Providers Care Electrical Engineering Designer Name Role Phone Norma Schofield MD Primary Care Provider [phone] Medications traZODone (DESYREL) 50 mg tablet TK 1 T PO QHS 0 09/20/2018 Active rosuvastatin (CRESTOR) 5 mg tablet TK 1 T PO QD 1 10/23/2018 Active citalopram (CeleXA) 10 mg tablet TK 1 T PO ONCE A DAY 0 09/24/2018 Active raNITIdine (ZANTAC) 150 mg tablet TK 1 T PO BID PRF ACID REFLUX 1 10/10/2018 Active lisinopril (PRINIVIL) 20 mg tablet TK 1 T PO QD 2 10/22/2018 Active aspirin (KISHOR) 325 mg tablet Take 325 mg by mouth daily. Active glucosamine HCl/chondroitin buckley (GLUCOSAMINE-CHO NDROITIN ORAL) Take by mouth. Active Active Problems Problem Noted Date Diagnosed Date Cerebrovascular accident (CVA) 11/17/2018 Family History Medical History Relation Name Comments Heart Disease Brother Heart Disease Father No Known Problems Mother Heart Disease Sister Relation Name Status Comments Brother Alive Father Mother Alive Sister Alive Social History Tobacco Use Types Packs/Day Years Used Date Smoking Tobacco: Never Alcohol Use Standard Drinks/Week Comments Never 0 (1 standard drink = 0.6 oz pur e alcohol) Comments Unknown Sex and Gender Information Value Date Recorded Sex Assigned at Not on file Legal Sex Female 2:12 PM CDT Gender Identity Not on file Sexual Orientation Not on file Occupation Industry Job Start Date Job End Date Not on file Not on file Not on file Not on file Last Filed Vital Signs Vital Sign Reading Time Taken Comments Blood Pressure 102/60 11/17/2018 9:00 AM CDT Pulse - - Temperature - - Respiratory Rate - - Oxygen Saturation - - Inhaled Oxygen Concentration - - Weight 76.2 kg (168 lb) 11/17/2018 9:00 AM CDT Height 152.4 cm (5') 11/17/2018 9:00 AM CDT Body Mass Index 32.81 11/17/2018 9:00 AM CDT Plan of Treatment Health Maintenance Due Date Last Done Comments DTAP/TDAP/TD VACCINES (1 - Tdap) 1971 BREAST CANCER SCREENING 1992 COLORECTAL SCREENING 1997 Colorectal Cancer Screening 1997 FIT-DNA Q 3 years 1997 FIT/FOBT Q 1 year 1997 Flex Sig/CT Colonography Q 5 years 1997 PNEUMOCOCCAL VACCINE 50+ YEARS (1 of 1 - PCV) 03/02/20 02 ZOSTER VACCINE (1 of 2) 2002 OSTEOPOROSIS SCREENING 2017 INFLUENZA VACCINE (#1) 2024 RSV VACCINE (60+ or ) (1 - 1-dose 75+ series) 2027 Care Teams Electrical Engineering Designer Relationship Specialty Start Date End Date Norma Schofield MD PCP - General Family Practice 11/27/18
--- OUTSIDE RECORDS SUMMARY | 2024-08-27 14:25 | XMS_ITS | Clinical Summary ---
Author Organization [facility] Address [address] [place] [address] Care Team Providers Care Jewelry Casting Model Maker Apprentice Name Role Phone Norma Schofield MD Primary [...] (two) times a day 2 Active VIT C,R-BF-XQLBV-GLORIA TEIN-ZEAXAN ORAL Take 1 capsule by mouth [...] disease) Macular degeneration Spinal stenosis Cerebrovascular disease Surgical History Surgery Date Site/Laterality Comments FL UPPER GI AIR CONTRAST W KUB 01/14/2018 Left FL UPPER GI AIR CONTRAST W KUB 02/18/2018 Left Medical History Medical History Date Comments Hypertension HLD (hyperlipidemia) CKD (chronic kidney disease) Macular degeneration Anxiety Spinal stenosis Cerebrovascular disease Family History Medical History Relation Name Comments Breast cancer Father's Sister Dementia Mother Heart disease Mother FH: premature coronary heart disease - (Added by TW Conv) Heart disease Sister 1 FH: premature coronary heart disease - (Added by TW Conv) Heart attack Sister 2 Family history of myocardial infarction - (Added by TW Conv) Relation Name Status Comments Father's Sister Mother Sister 1 Sister 2 Social History Tobacco Use Types Packs/Day Years Used Date Smoking Tobacco: Never Smokeless Tobacco: Never Tobacco Cessation:Counseling Given: Not Answered Personal Safety Answer Date Recorded Getting School Help Needed Not on file 06/04 Comments Unknown Sex and Gender Information Value Date Recorded Sex Assigned at Not on file Legal Sex Female 11:00 AM SENIOR DATA WAREHOUSE ARCHITECT Gender Identity Not on file Sexual Orientation Not on file 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 file Not on file Not on file Obstetrics History Last Filed Vital Signs Vital Sign Reading [...] 03/20/2022 7:55 AM CDT Plan of Treatment Health Maintenance Due Date Last Done Comments Colon Cancer Screening-Colonoscopy 1950 Depression Screening 1952 Fall Risk Assessment 1950 Hepatitis C Screening 1950 DTaP/Tdap/Td Vaccine (1 - Tdap) 1963 Hepatitis B Screening 1970 Well Visit 65+ 2017 Osteoporosis Screening-Bone Density Scan 12/22/2017 12/23/2015 Breast Cancer Screening-Mammogram 08/07/2022 08/07/2021, 06/10/2020, 05/05/2019, Additional history exists Covid-19 Vaccine (2023-2 5 season) 2024 09/06/2021, 03/08/2021, 07/27/2020, Additional history exists Influenza Vaccine (#1) 2024 , 01/19/2020, 03/11/2019, Additional history exists Zoster Vaccine Completed 02/11/2018, 02/2018, 09/30/2017, Additional history exists Pneumococcal vaccine 65+ Completed 08/24/2021, 03/03 Procedures Procedure Name Priority Date/Time Associated Diagnosis Comments SCREENING MAMMOGRAM BILATERAL W SATHISH Schedule Routine, Read Routine (OP Routine) 08/07/2021 12:29 PM SENIOR DATA WAREHOUSE ARCHITECT Screening mammogram, encounter for DEXA AXIAL SKELETON BONE DENSITY 1 OR MORE SITES Routine 12/23/2015 11:36 AM CDT from Last 3 Months or Most Recently Relevant to Health Maintenance Results * Screening Mammogram Bilateral W Sathish (08/07/2021 12:29 PM SENIOR DATA WAREHOUSE ARCHITECT) Anatomical Region Laterality Modality Breast Bilateral Mammography Narrative 08/07/2021 1:16 PM SENIOR DATA WAREHOUSE ARCHITECT Examination: Screening Mammogram Bilateral W Sathish: 08/07/21 [...] 12:09 PM CDT EXAM: Bone mineral density [facility]. HISTORY: Postmenopausal. Assess for osteoporosis. DXA BMD was done at [facility] on a [employer] CI. Precision testing at this site has [...] M.D. Requesting: PAIGE ROBLERO Requesting Requesting ID: [id number] Attending Attending ID: [id number] Completed Time: 12/23/2015 11:36 AM Dictated Time: 12/23/2015 12:09 AM Transcribed Time: 12/23/2015 12:09 AM Signed by: ALEXSANDER VIDAL MD on 12/23/2015 12:09 AM Report To 1 ID: [id number] Report To 1 Name: NORMA SCHOFIELD Report To 1 FAX: Report To 2 ID: Report To 2 Name: , Report To 2 FAX: Report To 3 ID: Report To 3 Name: , Report To 3 FAX: NextGen Order #: Procedure Note Provider, MD Naomi - 09/27/2016 EXAM: Bone mineral density [facility]. HISTORY: Postmenopausal. Assess for osteoporosis. DXA BMD was done at [facility] on a [employer] CI. Precision testing at this site has [...] M.D. Requesting: PAIGE ROBLERO Requesting Requesting ID: [id number] Attending Attending ID: [id number] Completed Time: 12/23/2015 11:36 AM Dictated Time: 12/23/2015 12:09 AM Transcribed Time: 12/23/2015 12:09 AM Signed by: ALEXSANDER VIDAL MD on 12/23/2015 12:09 AM Report To 1 ID: [id number] Report To 1 Name: NORMA SCHOFIELD Report To 1 FAX: Report To 2 ID: Report To 2 Name: , Report To 2 FAX: Report To 3 ID: Report To 3 Name: , Report To 3 FAX: NextGen Order #: Historical Provider MD NGUYEN DXA PROCEDURES Final Result from Last 3 Months or Most Recently Relevant to Health Maintenance Insurance [facility] UHC MEDICARE ADVANTAGE [facility] UHC MEDICARE ADVANTAGE [facility] UHC MEDICARE ADVANTAGE Care Teams Jewelry Casting Model Maker Apprentice Relationship Specialty Start Date End Date Norma Schofield MD PCP - General 01/16/18
--- OUTSIDE RECORDS SUMMARY | 2024-08-27 14:25 | XMS_ITS | Encounter Summary ---
Author Organization [facility] Address [address] [place] [address] Care Team Providers Care Technical Support Internship Name Role Phone Norma Schofield MD Primary Care Provider + Encounter Details Date Type Department Care Team (Late st Contact Info) Description 01/23/2022 Telephone [facility] Radiology [address] [place] [address] Silas Pham MD PhD [address] [place] [address] Social History Tobacco Use Types Packs/Day Years Used Date Smoking Tobacco: Never Smokeless Tobacco: Never Comments Unknown Sex and Gender Information Value Date Recorded Sex Assigned at Not on file Legal Sex Female 11:00 AM CORPORATE HEALTH CONSULTANT Gender Identity Not on file Sexual Orientation Not on file 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
[2024-08-27 14:28] LABS: Troponin I < 0.012 ng/mL (0.000-0.034)
[2024-08-27 14:47] LABS: Thyroid Stimulating Hormone Reflex < 0.015 uIU/mL (0.465-4.68)
[2024-08-27] MEDS: LACTATED RINGERS 1,000 ML 999 ML IV CONT (14:50)
[2024-08-27] MEDS: dilTIAZem HCl INJ 25 MG/5 ML VIAL 10 MG IV PUSH (14:51)
[2024-08-27] MEDS: APIXABAN 5 MG TABLET PO (14:51)
[2024-08-27] MEDS: dilTIAZem 100 MG/100 ML 100 MG/100 ML BAG IV CONT (14:52)
--- OUTSIDE RECORDS SUMMARY | 2024-08-27 15:01 | XMS_ITS | Encounter Summary ---
Author Organization [facility] Healthcare Address [address] [place] [address] Care Team Providers Care Licensed Certified Orthotist Name Role Phone Norma Schofield MD Primary Care Provider + Encounter Details Date Type Department Care Team (Late st Contact Info) Description 01/23/2022 Telephone [facility] Radiology [address] [place] [address] Silas Pham MD PhD [address] [place] [address] Social History Tobacco Use Types Packs/Day Years Used Date Smoking Tobacco: Never Smokeless Tobacco: Never Comments Unknown Sex and Gender Information Value Date Recorded Sex Assigned at Not on file Legal Sex Female 11:00 AM GREEN BUILDING ARCHITECT Gender Identity Not on file Sexual Orientation Not on file 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
--- OUTSIDE RECORDS SUMMARY | 2024-08-27 15:01 | XMS_ITS | Referral Summary ---
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 Not on file Not [...] Read Routine (OP Routine) 08/07/2021 12:29 PM GOODWILL AMBASSADOR Screening mammogram, encounter for DEXA AXIAL SKELETON BONE DENSITY 1 OR MORE SITES Routine 12/23/2015 11:36 AM CDT from Last 3 Months or Most Recently Relevant to Health Maintenance Results * Screening Mammogram Bilateral W Sathish (08/07/2021 12:29 PM GOODWILL AMBASSADOR) Anatomical Region Laterality Modality Breast Bilateral Mammography Narrative 08/07/2021 1:16 PM GOODWILL AMBASSADOR Examination: Screening Mammogram Bilateral W Sathish: 08/07/21 [...] 12:09 PM CDT EXAM: Bone mineral density [facility]. HISTORY: Postmenopausal. Assess for osteoporosis. DXA BMD was done at [facility] on a [employer] CI. Precision testing at this site has [...] M.D. Requesting: PAIGE ROBLERO Requesting Requesting ID: [id number] Attending Attending ID: [id number] Completed Time: 12/23/2015 11:36 AM Dictated Time: 12/23/2015 12:09 AM Transcribed Time: 12/23/2015 12:09 AM Signed by: ALEXSANDER VIDAL MD on 12/23/2015 12:09 AM Report To 1 ID: [id number] Report To 1 Name: NORMA SCHOFIELD Report To 1 FAX: Report To 2 ID: Report To 2 Name: , Report To 2 FAX: Report To 3 ID: Report To 3 Name: , Report To 3 FAX: NextGen Order #: Procedure Note Provider, MD Naomi - 09/27/2016 EXAM: Bone mineral density [facility]. HISTORY: Postmenopausal. Assess for osteoporosis. DXA BMD was done at [facility] on a [employer] CI. Precision testing at this site [...] M.D. Requesting: PAIGE ROBLERO Requesting Requesting ID: [id number] Attending Attending ID: [id number] Completed Time: 12/23/2015 11:36 AM Dictated Time: 12/23/2015 12:09 AM Transcribed Time: 12/23/2015 12:09 AM Signed by: ALEXSANDER VIDAL MD on 12/23/2015 12:09 AM Report To 1 ID: [id number] Report To 1 Name: NORMA SCHOFIELD Report To 1 FAX: Report To 2 ID: Report To 2 Name: , Report To 2 FAX: Report To 3 ID: Report To 3 Name: , Report To 3 FAX: NextGen Order #: Historical Provider MD NGUYEN DXA PROCEDURES Final Result from Last 3 Months or Most Recently Relevant to Health Maintenance Insurance [facility] UHC MEDICARE ADVANTAGE [facility] MEDICARE ADVANTAGE [facility] MEDIC[facility] ADVANTAGE Care Teams Business Operations Director Relationship Specialty Start Date End Date Norma Schofield MD PCP - General 01/16/18
--- OUTSIDE RECORDS SUMMARY | 2024-08-27 15:01 | XMS_ITS | Clinical Summary ---
Author Organization [facility] [address] Address [address] [place] [address] Care Team Providers Care Crate Builder Name Role Phone Norma Schofiled MD Primary Care Provider [phone] Medications traZODone (DESYREL) 50 mg tablet TK [...] - 1-dose 75+ series) 2027 Care Teams Crate Builder Relationship Specialty Start Date End Date Norma Schofield MD PCP - General Family Practice 11/27/18
--- OUTSIDE RECORDS SUMMARY | 2024-08-27 15:01 | XMS_ITS | Clinical Summary ---
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 Not on file [...] Read Routine (OP Routine) 08/07/2021 12:29 PM SUPERVISOR TRANSFERRING AND BOXING Screening mammogram, encounter for DEXA AXIAL SKELETON BONE DENSITY 1 OR MORE SITES Routine 12/23/2015 11:36 AM CDT from Last 3 Months or Most Recently Relevant to Health Maintenance Results * Screening Mammogram Bilateral W Sathish (08/07/2021 12:29 PM SUPERVISOR TRANSFERRING AND BOXING) Anatomical Region Laterality Modality Breast Bilateral Mammography Narrative 08/07/2021 1:16 PM SUPERVISOR TRANSFERRING AND BOXING Examination: Screening Mammogram Bilateral W Sathish: 08/07/21 [...] 12:09 PM CDT EXAM: Bone mineral density [facility]. HISTORY: Postmenopausal. Assess for osteoporosis. DXA BMD was done at [facility] on a [employer] CI. Precision testing at this site has [...] M.D. Requesting: PAIGE ROBLERO Requesting Requesting ID: [id number] Attending Attending ID: [id number] Completed Time: 12/23/2015 11:36 AM Dictated Time: 12/23/2015 12:09 AM Transcribed Time: 12/23/2015 12:09 AM Signed by: ALEXSANDER VIDAL MD on 12/23/2015 12:09 AM Report To 1 ID: [id number] Report To 1 Name: NORMA SCHOFIELD Report To 1 FAX: Report To 2 ID: Report To 2 Name: , Report To 2 FAX: Report To 3 ID: Report To 3 Name: , Report To 3 FAX: NextGen Order #: Procedure Note Provider, MD Naomi - 09/27/2016 EXAM: Bone mineral density [facility]. HISTORY: Postmenopausal. Assess for osteoporosis. DXA BMD was done at [facility] on a [employer] CI. Precision testing at this site has [...] M.D. Requesting: PAIGE ROBLERO Requesting Requesting ID: [id number] Attending Attending ID: [id number] Completed Time: 12/23/2015 11:36 AM Dictated Time: 12/23/2015 12:09 AM Transcribed Time: 12/23/2015 12:09 AM Signed by: ALEXSANDER VIDAL MD on 12/23/2015 12:09 AM Report To 1 ID: [id number] Report To 1 Name: NORMA SCHOFIELD Report To 1 FAX: Report To 2 ID: Report To 2 Name: , Report To 2 FAX: Report To 3 ID: Report To 3 Name: , Report To 3 FAX: NextGen Order #: Historical Provider MD NGUYEN DXA PROCEDURES Final Result from Last 3 Months or Most Recently Relevant to Health Maintenance Insurance [facility] UHC MEDICARE ADVANTAGE [facility] MEDICARE Address: [facility] [address] [place] [address] [facility] UHC MEDICARE ADVANTAGE [facility] MEDICAL [facility] HMO/PPO Address: [address] [address] [place] [address] UHC MEDICARE ADVANTAGE Care Teams Drill Bit Sharpener Relationship Specialty Start Date End Date Norma Schofield MD PCP - General 01/16/18
[2024-08-27 15:13] LABS: Free T4 Free Thyroxine Reflex 5.95 ng/dL (0.78-2.19)
--- NOTE | 2024-08-27 16:38 | ECG_ITS ---
Test Date: 2024-08-27 16:40:01 Measurements Intervals [place] Rate: 108 P: 0 IA: 0 QRS: 43 QRSD: 84 T: 46 QT: 324 QTc: 434 Interpretive Statements ATRIAL FIBRILLATION WITH RAPID VENTRICULAR RESPONSE LOW QRS VOLTAGE IN PRECORDIAL LEADS [QRS DEFLECTION < 1.0 mV IN CHEST LEADS] Compared to ECG 08/27/2024 13:44:02 NO SIGNIFICANT CHANGES Electronically Signed On 08-28-2024 10:38:55 CDT by Diamond Cook M.D.
[2024-08-27] MEDS: SODIUM CHLORIDE 0.9% IV 1,000 ML 999 ML (16:42)
--- NOTE | 2024-08-27 17:13 | ADMGEN ---
This patient, Laura Eddy, was admitted to IMU Room 209-01 at 1656. Patient/family oriented to hospital policies and general routines including ID bracelet, bed and alarms, visiting hours, pain management, procedures, bathroom and other care routines, personal items, smoking policy, room service/diet, and visiting hours. Information on how to activate the Rapid Response Team has been discussed. Patient/Family are encouraged to report perceived risks to care and to ask questions if they do not understand what they are told or what they should do.
[2024-08-27 17:17] LABS: Troponin I < 0.012 ng/mL (0.000-0.034)
--- NOTE | 2024-08-27 17:39 | PM.IMHP ---
H&P: HPI History of Present Illness Date/Time: 08/27/24 17:39 Chief Complaint: Elevated HR Narrative: 74 y/o F with PMH of HLD, HTN, sleep apnea (noncompliant with CPAP), and dementia presents here with an elevated heart rate, nausea, and vomiting. The patient presents to the emergency department via EMS on 08/27 for further evaluation of an elevated heart rate. She reports over the last 4 days she has been experiencing nausea and vomiting. Patient then had her Apple Watch notify her of a elevated heart rate despite rest (she had just woken from a morning nap) 2 days ago. She was initially going to try to see her PCP for this as her HR returned to its normal resting rate. Patient then showed her the watch reading and he insisted that she seek care at the ER today. She denies any chest pain, shortness of breath, dizziness, issues with diarrhea/constipation, worsening anxiety, or weight loss. +diaphoresis today. She denies any significant cardiac history or history of dysrhythmia. She denies history of thyroid dysfunction. Initial VS at presentation: 98.6? F, HR 142, R 13, 118/73, and 96% on RA. ED workup showed: WBC 4.4, hemoglobin 11.4, normal coags, creatinine 1.43 and GFR 36 (at baseline), LFTs mildly elevated, TSH < 0.015 and T4 5.95. EKG showed AFib RVR, rate 132. CXR showed no acute cardiopulmonary disease. Thyroid ultrasound was normal. Review of Systems Review of Systems: All systems reviewed & are unremarkable except as noted in HPI and below [facility] Past Medical History Medical History Obstructive sleep apnea Moderate dementia Macular degeneration GERD without esophagitis Osteopenia Mild aortic valve sclerosis echo 2019 Mixed hyperlipidemia Generalized anxiety disorder Essential hypertension Pes anserine bursitis History of mumps History of measles Family History Family History Mother Family history of Alzheimer's disease Hypertension Father Family history of cardiovascular disease Family history of elevated blood lipids Acute myocardial infarction Sibling Family history of cardiovascular disease Acute myocardial infarction Son Malignant hyperthermia Other Family history of malignant neoplasm Family history of malignant neoplasm of male breast Social History Social History Smoking status: Never smoker Second hand tobacco smoke exposure: No Alcohol intake: never Substance use: never Do You Feel Safe in your Home?: Yes Lack of Transportation: YES Lack of Food: Never True Current Housing: I Have Housing Concerned About Future Housing: No Difficulty Paying Gas/Electric Bills: No Difficulty Paying for Meds: No Currently Unemployed: No Education: Master's Degree or Higher Difficulty w/ Childcare or Family Care: No Living arrangements: with family Gender identity (if verbalized by the patient): Female Spiritual care concerns: No Meds Home Medications and Allergies Home Medications ?Medication ?Instructions ?Recorded ?Confirmed ?Type CPAP Repair #1 ea 12/12/22 08/27/24 Rx famotidine 20 mg tablet 20 mg PO BID #180 tabs 01/03/23 08/27/24 Rx hydrochlorothiazide 25 mg tablet See Rx Instructions .Route 01/03/23 08/27/24 Rx .COMPLEX #90 tabs rosuvastatin 5 mg tablet See Rx Instructions .Route 01/03/23 08/27/24 Rx .COMPLEX #90 tabs cholecalciferol (vitamin D3) 50 50 mcg PO DAILY 03/08/23 08/27/24 History mcg (2,000 unit) capsule alendronate 70 mg tablet 70 mg PO WEEKLY #4 tabs 09/02/23 08/27/24 Rx lisinopril 20 mg tablet 20 mg PO HS 08/27/24 08/27/24 History Allergies Allergy/AdvReac Type Severity Reaction Status Date / Time atorvastatin Allergy Unknown cognitive Verified 08/27/24 14:03 impairment vilazodone (Viibryd) Allergy Unknown complete Verified 08/27/24 14:03 loss of taste donepezil AdvReac Intermediate nausea, Verified 08/27/24 14:03 diarrhea, nightmares Vital Signs Vital Signs - 24 hr 08/27/24 13:57 08/27/24 13:58 08/27/24 14:52 Temperature 98.6 F Pulse Rate 142 H 132 H 121 H Respiratory Rate 13 Blood Pressure 118/73 105/52 L Pulse Oximetry 96 08/27/24 17:10 Temperature 98.1 F Pulse Rate 119 H Respiratory Rate 20 Blood Pressure 100/47 L Pulse Oximetry 92 Exam Const: General: comfortable and no acute distress Other: , female, nontoxic appearance HENMT: Face/Nose/Sinus: Normal nares present Mouth: Yes moist mucous membranes Eyes: General: appearance normal, both eyes and all related structures Sclera: sclerae normal Pupils: Equal, round and reactive pupils present EOM: EOMs intact bilaterally Resp: Effort & Inspection: normal respiratory effort Auscultation: clear to auscultation bilaterally Cardio: Rate: tachycardic Rhythm: abnormal rhythm Other: Irregular and tachy consistent with AFib. No murmur or rub. GI: Other: Abdomen soft, nondistended, nontender. Normoactive bowel sounds in all quadrants. Skin: General skin exam: normal color and no rashes or lesions noted Wounds: no wounds Neuro: Speech: normal speech Motor exam (neuro): 5/5 motor strength present throughout Sensory Exam: normal sensation Other: A&O x4 Extrem: General: normal to inspection Psych: Mental Status: mental status grossly normal Affect: normal affect Other: Good insight and judgment, pleasant H&P: Results Labs Labs: Short CBC 08/27/24 Range/Units 13:57 WBC 4.4 L (4.5-10.0) K/mm3 Hgb 11.4 L (12.0-15.0) g/dL Hct 34.1 L (37.0-47.0) % Plt Count 214 (150-375) k/mm3 BMP 08/27/24 13:57 Sodium 139 Potassium 4.4 Chloride 104 Carbon Dioxide 22 BUN 38 H D Creatinine 1.43 H Glucose 109 Calcium 9.1 Cardiac Enzymes 08/27/24 Range/Units 13:57 Troponin I < 0.012 (0.000-0.034) ng/mL Liver Function 08/27/24 Range/Units 13:57 Total Bilirubin 0.5 (0.2-1.3) mg/dL AST 97 H (14-36) U/L ALT 153 H (6-35) U/L Alkaline Phosphatase 57 (38-126) U/L Albumin 4.2 (3.5-5.1) g/dL Assessment and Plan Assessment and plan (1) Atrial fibrillation: Qualifiers: Atrial fibrillation type: paroxysmal Qualified Code(s): I48.0 - Paroxysmal atrial fibrillation Code(s): I48.91 - Unspecified atrial fibrillation Status: Acute Assessment and Plan: - EKG, initial: AFib RVR, rate 132 - CXR: No acute cardiopulmonary disease - Troponin: <0.012 x3 - check echo - TSH low, T4 elevated consistent with hypothyroidism, no history. see below. - cardiology consulted for new onset AFib and to establish care - CHADSVasc: 3 (HTN, Age, Gender) -> Eliquis 5 mg b.i.d. - telemetry monitoring New atrial fibrillation, suspected to be paroxysmal as patient had symptoms intermittently over the last few days. High suspicion that new dysrhythmia is secondary to new hyperthyroidism. The patient was started on diltiazem gtt at 5 mg/hr w/10 IVP. Patient is nearing rate control at 119. Will increase drip to 10 mg/hr. Admission to IMU for close monitoring. (2) Hyperthyroidism: Code(s): E05.90 - Thyrotoxicosis, unspecified without thyrotoxic crisis or storm Status: Acute Assessment and Plan: - no previous history of thyroid dysfunction - TSH <0.015, T4 5.95 on 08/27/24 - thyroid ultrasound: Normal exam (3) Essential hypertension: Code(s): I10 - Essential (primary) hypertension Status: Acute Assessment and Plan: - chronic, currently 100/47 - hold home medications, may need adjustments with new need for antiarrhythmic medication and she remains on the low end of normotensive. - monitor Plan Diet: Heart healthy GI Prophylaxis: Not currently indicated DVT Prophylaxis: Eliquis 5 mg b.i.d. Lines: Peripheral Code Status: Full code Quality VTE Prophylaxis VTE prophylaxis: pharmacologic ordered Hospitalist MIPS Advance Care Plan I have confirmed that the patient's Advanced Care Plan is present, code status is documented, or surrogate decision maker is listed in patient medical record.: Yes Medication Reconciliation I have utilized all available resources to obtain, update and review the patients current medications (includes all prescriptions, OTC, herbals, cannabis, and nutritional supplements).: Yes
[2024-08-27] MEDS: ONDANSETRON INJ 4 MG/2 ML VIAL IV PUSH ×2 (17:56→21:40)
[2024-08-27] MEDS: ACETAMINOPHEN 325 MG TABLET 650 MG PO (17:57)
[2024-08-27] MEDS: METOCLOPRAMIDE HCL INJ 10 MG/2 ML VIAL IV PUSH (19:02)
[2024-08-27 20:23] LABS: Troponin I < 0.012 ng/mL (0.000-0.034)
[2024-08-28] VITALS (23 sets, daily range): BP systolic 91–127; BP diastolic 43–58; PULSE 73–130; RESP 16–18; TEMP 36.6–36.7; O2SAT 91–97
--- NOTE | 2024-08-28 | ECHO_ITS ---
Patient Info Name: Laura Eddy Age: 74 years : 1950 Gender: Female Ht: 60 in Wt: 152 lbs BSA: 1.73 m2 HR: 108 bpm BP: 115 / 43 mmHg Heart Rhythm: Atrial Fibrillation, Tachycardia Technical Quality: Good Exam Date: 08/28/2024 10:21 AM Exam Location: Echo Lab Patient Status: Inpatient Admit Date: 08/27/2024 Staff Ordering Physician: Sommer Lima APRN Library Circulation Clerk: Kell Hernandez RDCS Attending Provider: Beltran Akins MD Referring Physician: Janie PAYNE; Exam Type: CA echo doppler color flow Study Info Complete two-dimensional, color flow and Doppler transthoracic echocardiogram is performed. Summary 1. Left ventricular chamber dimension is normal. 2. Left ventricular systolic function is hyperdynamic, estimated at >70%. 3. There is mildly increased left ventricular wall thickness. 4. Right ventricular systolic function is normal. 5. Left atrial chamber dimension is severely enlarged. 6. There is moderate aortic valve sclerosis. 7. There is mild aortic valve stenosis with a peak velocity of 286 cm/s, mean gradient of 16 mmHg, and aortic valve area of 1.8 cm2. 8. There is mild mitral valve regurgitation. 9. There is mild tricuspid valve regurgitation. 10. There is mild pulmonic regurgitation. Left Ventricle Left ventricular chamber dimension is normal. Left ventricular systolic function is hyperdynamic, estimated at >70%. There is mildly increased left ventricular wall thickness. The left ventricular diastolic function is abnormal. Right Ventricle Right ventricular chamber dimension is normal. Right ventricular systolic function is normal. Left Atria Left atrial chamber dimension is severely enlarged. Right Atria Right atrial chamber dimension is normal. Atrial Septum Intact interatrial septum visualized by color flow imaging. Aortic Valve The aortic valve is probable trileaflet. There is moderate aortic valve sclerosis. There is mild aortic valve stenosis with a peak velocity of 286 cm/s, mean gradient of 16 mmHg, and aortic valve area of 1.8 cm2. There is no aortic valve regurgitation. Pulmonic Valve The pulmonic valve is not well visualized. There is mild pulmonic regurgitation. Mitral Valve The mitral valve has thickened leaflets. There is mild mitral valve regurgitation. The mitral valve annulus is moderately calcified. Tricuspid Valve There is mild tricuspid valve regurgitation. Pericardium/Pleural The pericardium appears epicardial fat pad. There is no pericardial effusion. Inferior Vena Cava Normal inferior vena cava with >50% collapse upon inspiration consistent with normal right atrial pressure, 3 mmHg. Aorta The aortic root size at the sinus of Valsalva is normal. Left Ventricular Outflow Tract Name Value Normal LVOT 2D LVOT Diameter 1.8 cm LVOT Doppler LVOT Peak Gradient 11 mmHg LVOT Mean Gradient 8 mmHg LVOT VTI 33 cm LVOT VTI/AV VTI Ratio 0.7 LVOT Stroke Volume 81 ml LVOT CO 20.0 l/min LVOT CI 11.6 l/min/m2 Pulmonic Valve Name Value Normal PV Doppler PV Peak Gradient 7 mmHg Mitral Valve Name Value Normal MV Doppler MV Peak Gradient 12 mmHg MV Mean Gradient 3 mmHg MV Decel Cooper 1,113 cm/s2 MV PHT 41 ms MV Area (PHT) 5.4 cm2 4.0-5.0 MV Area (Cont Eq VTI) 2.1 cm2 MV Diastolic Function MV E Peak Velocity 158 cm/s MV A Peak Velocity 2 cm/s MV E/A 77.0 MV Decel Time 142 ms MV Annular TDI MV E/e' (Septal) 13.2 <=8.0 MV E/e' (Lateral) 12.0 <=8.0 MV E/e' (Average) 12.6 Tricuspid Valve Name Value Normal TV Regurgitation Doppler TR Peak Velocity 313 cm/s TR Peak Gradient 38 mmHg Estimated PAP/RSVP RA Pressure 3 mmHg <=5 PA Systolic Pressure 42 mmHg <36 RV Systolic Pressure 42 mmHg <36 Aorta Name Value Normal Ascending Aorta Ao Root Diameter (MM) 2.5 cm Ao Root Diam Index (MM) 1.5 cm/m2 Aortic Valve Name Value Normal AV Doppler AV Peak Velocity 286 cm/s AV Peak Gradient 31 mmHg AV Mean Gradient 16 mmHg AV VTI 45 cm AV Area (Cont Eq VTI) 1.8 cm2 >=3.0 AV Area (Cont Eq Madi) 1.5 cm2 AV Regurgitation 2D LVOT Area 2.5 cm2 Ventricles Name Value Normal LV Dimensions 2D/MM IVS Diastolic Thickness (2D) 1.0 cm 0.6-1.0 LVID Diastole (2D) 3.4 cm 3.8-5.2 LVIW Diastolic Thickness (2D) 1.1 cm 0.6-0.9 LVID Systole (2D) 2.2 cm 2.2-3.5 LVOT Diameter 1.8 cm LV Mass (2D Cubed) 105.53 g 67.00-162.00 LV Mass Index (2D Cubed) 61 g/m2 43-95 Relative Wall Thickness (2D) 0.63 LV Fractional Shortening/Ejection Fraction 2D/MM LV Fractional Shortening (2D) 37 % 27-45 LV EF (2D Teicholz) 67 % 54-74 LV Diastolic Volume (4C MOD) 40 ml LV EF (4C MOD) 79 % LV Diastolic Volume (2C MOD) 35 ml LV EF (2C MOD) 73 % LV Diastolic Volume (BP MOD) 39 ml 46-106 LV Diastolic Volume Index (BP MOD) 23 ml/m2 29-61 LV Systolic Volume (BP MOD) 9 ml 14-42 LV Systolic Volume Index (BP MOD) 5 ml/m2 8-24 LV EF (BP MOD) 77 % 54-74 LV Diastolic Length (4C) 6.5 cm LV Systolic Length (4C) 4.6 cm LV Stroke Volume (4C MOD) 31 ml Atria Name Value Normal LA Dimensions LA Dimension (MM) 3.7 cm 2.7-3.8 LA Volume (4C A-L) 73 ml LA Volume (BP A-L) 81 ml RA Dimensions RA Area (4C) 11.7 cm2 <=18.0 Report Signatures
[2024-08-28] MEDS: dilTIAZem 100 MG/100 ML 100 MG/100 ML BAG 10 MG IV CONT ×3 (03:00→20:09)
[2024-08-28 03:55] LABS: Basophils Percent Auto 0.3 % (0.2-1.2); Eosinophils Absolute Auto 0.1 K/mm3 (0-0.3); Eosinophils Percent Auto 1.5 % (0-4.4); Hematocrit 28.4 % (37.0-47.0); Hemoglobin 9.4 g/dL (12.0-15.0); Immature Granulocyte Absolute 0.01 K/mm3 (0.00-0.031); Immature Granulocyte Percent A 0.3 % (0-0.5); Lymphocytes Absolute Auto 1.04 K/mm3 (0.9-3.2); Mean Corpuscular HGB Conc 33.1 g/dl (32-36); Mean Corpuscular Hemoglobin 31.1 pg (26-34); Mean Platelet Volume 10.6 fl (7.4-10.4); Monocytes Absolute Auto 0.5 K/mm3 (0.1-0.6); Monocytes Percent Auto 13.3 % (2.6-8.5); Neutrophils Absolute Auto 2.4 K/mm3 (1.3-6.7); Neutrophils Percent Auto 58.6 % (45.5-73.1); Platelet Count Result 161 k/mm3 (150-375); Red Blood Count 3.02 M/mm3 (4.2-5.4); Red Cell Distribution Width 11.2 % (11.5-14.5)
[2024-08-28 04:07] LABS: Alanine Aminotransferase 129 U/L (6-35); Albumin Level 3.2 g/dL (3.5-5.1); Alkaline Phosphatase 45 U/L (38-126); Anion Gap 9 mmol/L (4-12); Aspartate Amino Transferase 60 U/L (14-36); Bilirubin,Total 0.5 mg/dL (0.2-1.3); Blood Urea Nitrogen 34 mg/dL (7-17); Calcium 8.4 mg/dL (8.4-10.2); Carbon Dioxide 22 mmol/L (22-30); Chloride 107 mmol/L (98-107); Estimated CRCL calculation 30 ml/min; Estimated Glomerular Filt Rate 40; Glucose 95 mg/dL (65-110); Potassium 4.3 mmol/L (3.4-5.0); Sodium 138 mmol/L (137-145)
[2024-08-28] MEDS: ONDANSETRON INJ 4 MG/2 ML VIAL IV PUSH ×3 (08:19→18:10)
[2024-08-28] MEDS: ROSUVASTATIN 5 MG TABLET PO (08:43)
[2024-08-28] MEDS: APIXABAN 5 MG TABLET PO ×2 (08:43→20:10)
[2024-08-28] MEDS: FAMOTIDINE 20 MG TABLET PO ×2 (08:43→20:10)
[2024-08-28] MEDS: CHOLECALCIFEROL 1,000 UNITS TABLET 2000 UNITS PO (08:43)
[2024-08-28] MEDS: methiMAzole 5 MG TAB PO (10:55)
--- NOTE | 2024-08-28 12:26 | P.CONCA_ITS ---
Assessment and Plan Assessment and plan (1) Atrial fibrillation with rapid ventricular response: Code(s): I48.91 - Unspecified atrial fibrillation Status: Acute Plan 1. Atrial fibrillation with RVR. New diagnosis for the patient. 2. Hyperthyroidism. 3. Hypertension 4. Hyperlipidemia 5. Obstructive sleep apnea, not on CPAP PLAN: -Diagnosis of AFIB discussed with patient, including management strategies of rate control vs rhythm control strategy, including cardioversions. Patient would prefer rate control strategy at this time. An echocardiogram is pending as well. Given hyperthyroid state, prefer to use beta debbie. Will start Metoprolol 50mg BID. Uptitrate as tolerated, and wean down Diltiazem drip as tolerated. -[id number] of 3 due to age, gender, hypertension. Already started on Eliquis 5mg BID by primary team. Discussed with patient the indication for anticoagulation in atrial fibrillation, and she is agreeable to be on anticoagulation. Her daughter is a pharmacist, and she will check the cost of Eliquis with the patient's insurance. -Patient reports being diagnosed with KUMAR and tried a CPAP mask for about a month and then stopped as it was uncomfortable. Discussed the relation between KUMAR and atrial fibrillation, and she is willing to retry CPAP mask and/or discuss alternatives with her sleep medicine provider. -Started on Methimazole for hyperthyroidism. Recommend outpatient Endocrinology follow up. Recommendations and plan discussed with Hospitalist. History of Present Illness History of Present Illness Consult date/time: 08/28/24 12:26 Requesting physician: Sommer Lima APRN Consult reason: atrial fibrillation Reason For Visit: Afib RVR/Hyperthyroidism Narrative: We are consulted for AFIB with RVR. Laura is a 74 year old with hypertension, hyperlipidemia who presented with nausea/vomiting, elevated heart rate. Has had elevated heart rate at home since Saturday. Noted to be in AFIB with RVR in the ED. Started on Diltiazem drip with improvement in heart rate. No prior cardiac history. No prior history of AFIB. Found to be hyperthyroid as well. Troponins are negative. Review of Systems 2 Review of Systems: All systems reviewed & are unremarkable except as noted in HPI and below (HPI) [facility] Past Medical History Medical History Obstructive sleep apnea Moderate dementia Macular degeneration GERD without esophagitis Osteopenia Mild aortic valve sclerosis echo 2019 Mixed hyperlipidemia Generalized anxiety disorder Essential hypertension Pes anserine bursitis History of mumps History of measles Family History Family History Mother Family history of Alzheimer's disease Hypertension Father Family history of cardiovascular disease Family history of elevated blood lipids Acute myocardial infarction Sibling Family history of cardiovascular disease Acute myocardial infarction Son Malignant hyperthermia Other Family history of malignant neoplasm Family history of malignant neoplasm of male breast Social History Social History Smoking status: Never smoker Second hand tobacco smoke exposure: No Alcohol intake: never Substance use: never Do You Feel Safe in your Home?: Yes Lack of Transportation: YES Lack of Food: Never True Current Housing: I Have Housing Concerned About Future Housing: No Difficulty Paying Gas/Electric Bills: No Difficulty Paying for Meds: No Currently Unemployed: No Education: Master's Degree or Higher Difficulty w/ Childcare or Family Care: No Living arrangements: with family Gender identity (if verbalized by the patient): Female Spiritual care concerns: No Meds Home Medications and Allergies Home Medications ?Medication ?Instructions ?Recorded ?Confirmed ?Type CPAP Repair #1 ea 12/12/22 08/27/24 Rx famotidine 20 mg tablet 20 mg PO BID #180 tabs 01/03/23 08/27/24 Rx hydrochlorothiazide 25 mg tablet See Rx Instructions .Route 01/03/23 08/27/24 Rx .COMPLEX #90 tabs rosuvastatin 5 mg tablet See Rx Instructions .Route 01/03/23 08/27/24 Rx .COMPLEX #90 tabs cholecalciferol (vitamin D3) 50 50 mcg PO DAILY 03/08/23 08/27/24 History mcg (2,000 unit) capsule alendronate 70 mg tablet 70 mg PO WEEKLY #4 tabs 09/02/23 08/27/24 Rx lisinopril 20 mg tablet 20 mg PO HS 08/27/24 08/27/24 History Allergies Allergy/AdvReac Type Severity Reaction Status Date / Time atorvastatin Allergy Unknown cognitive Verified 08/27/24 14:03 impairment vilazodone (Viibryd) Allergy Unknown complete Verified 08/27/24 14:03 loss of taste donepezil AdvReac Intermediate nausea, Verified 08/27/24 14:03 diarrhea, nightmares Vital Signs Vital Signs - 24 hr 08/27/24 13:57 08/27/24 13:58 08/27/24 14:52 Temperature 37.0 C Pulse Rate 142 H 132 H 121 H Respiratory Rate 13 Blood Pressure 118/73 105/52 L Pulse Oximetry 96 Oxygen Delivery Fraction of Inspired Oxygen 08/27/24 17:10 08/27/24 17:10 08/27/24 18:00 Temperature 36.7 C Pulse Rate 119 H 119 H 103 H Respiratory Rate 20 Blood Pressure 100/47 L 100/47 L Pulse Oximetry 92 Oxygen Delivery Fraction of Inspired Oxygen 08/27/24 18:00 08/27/24 18:18 08/27/24 18:56 Temperature Pulse Rate 103 H 117 H Respiratory Rate Blood Pressure Pulse Oximetry Oxygen Delivery Room Air Fraction of Inspired Oxygen 08/27/24 19:54 08/27/24 20:00 08/27/24 20:00 Temperature 36.8 C Pulse Rate 107 H 104 H Respiratory Rate 16 Blood Pressure 102/58 L Pulse Oximetry 98 Oxygen Delivery Room Air Fraction of Inspired Oxygen 08/27/24 20:00 08/27/24 20:45 08/27/24 21:50 Temperature Pulse Rate 108 H 112 H Respiratory Rate Blood Pressure Pulse Oximetry 95 Oxygen Delivery Room Air Fraction of Inspired Oxygen 21 08/27/24 22:00 08/27/24 22:00 08/27/24 23:36 Temperature Pulse Rate 106 H 103 H Respiratory Rate Blood Pressure 100/57 L Pulse Oximetry Oxygen Delivery Room Air Fraction of Inspired Oxygen 08/27/24 23:59 08/28/24 00:00 08/28/24 00:00 Temperature 36.7 C Pulse Rate 106 H 103 H 103 H Respiratory Rate 16 Blood Pressure 117/42 L Pulse Oximetry 95 Oxygen Delivery Fraction of Inspired Oxygen 08/28/24 02:00 08/28/24 02:00 08/28/24 02:18 Temperature Pulse Rate 91 99 99 Respiratory Rate Blood Pressure 104/52 L Pulse Oximetry 93 Oxygen Delivery Fraction of Inspired Oxygen 08/28/24 03:00 08/28/24 03:31 08/28/24 04:00 Temperature Pulse Rate 101 H 100 Respiratory Rate Blood Pressure Pulse Oximetry Oxygen Delivery Room Air Fraction of Inspired Oxygen 08/28/24 04:00 08/28/24 04:00 08/28/24 06:00 Temperature 36.7 C Pulse Rate 98 106 H 100 Respiratory Rate 16 18 Blood Pressure 127/51 L 115/43 L Pulse Oximetry 97 95 Oxygen Delivery Fraction of Inspired Oxygen 08/28/24 06:00 08/28/24 06:00 08/28/24 08:00 Temperature Pulse Rate 101 H 94 130 H Respiratory Rate Blood Pressure 103/49 L Pulse Oximetry Oxygen Delivery Fraction of Inspired Oxygen 08/28/24 08:00 08/28/24 08:00 08/28/24 10:00 Temperature 36.6 C Pulse Rate 113 H 99 Respiratory Rate 18 Blood Pressure 103/49 L 125/52 L Pulse Oximetry 94 Oxygen Delivery Fraction of Inspired Oxygen 08/28/24 10:00 08/28/24 10:00 08/28/24 11:03 Temperature Pulse Rate 95 121 H 96 Respiratory Rate Blood Pressure 125/52 L 111/50 L Pulse Oximetry Oxygen Delivery Fraction of Inspired Oxygen 08/28/24 11:03 Temperature Pulse Rate 96 Respiratory Rate Blood Pressure 111/50 L Pulse Oximetry Oxygen Delivery Fraction of Inspired Oxygen Exam 2 Const: General: comfortable and no acute distress HENMT: Mouth: Yes moist mucous membranes Eyes: General: appearance normal, both eyes and all related structures S clera: sclerae normal Resp: Effort & Inspection: normal respiratory effort Auscultation: clear to auscultation bilaterally Cardio: Rate: tachycardic Rhythm: abnormal rhythm irregularly irregular Heart sounds: no murmurs Skin: General skin exam: normal color Neuro: Speech: normal speech Psych: Mental Status: mental status grossly normal Affect: normal affect Results Labs and Meds 08/28/24 03:42 08/28/24 03:42 Lab results: Cardiac Enzymes 08/27/24 08/27/24 08/27/24 Range/Units 13:57 16:40 19:57 AST 97 H (14-36) U/L Troponin I < 0.012 < 0.012 < 0.012 (0.000-0.034) ng/mL 08/28/24 Range/Units 03:42 AST 60 H (14-36) U/L Troponin I (0.000-0.034) ng/mL Coagulation 08/27/24 Range/Units 13:57 PT 14.2 (11.1-14.7) Seconds APTT 32.6 (22.3-36.8) Seconds CBC 08/27/24 08/28/24 Range/Units 13:57 03:42 WBC 4.4 L 4.0 L (4.5-10.0) K/mm3 RBC 3.66 L 3.02 L (4.2-5.4) M/mm3 Hgb 11.4 L 9.4 L (12.0-15.0) g/dL Hct 34.1 L 28.4 L (37.0-47.0) % Plt Count 214 161 (150-375) k/mm3 Lymph # (Auto) 1.28 1.04 (0.9-3.2) K/mm3 Coles # (Auto) 0.5 0.5 (0.1-0.6) K/mm3 Eos # (Auto) 0.1 0.1 (0-0.3) K/mm3 Baso # (Auto) 0.0 0.0 (0.0-0.1) K/mm3 Comprehensive Metabolic Panel 08/27/24 08/28/24 Range/Units 13:57 03:42 Sodium 139 138 (137-145) mmol/L Potassium 4.4 4.3 (3.4-5.0) mmol/L Chloride 104 107 (98-107) mmol/L Carbon Dioxide 22 22 (22-30) mmol/L BUN 38 H D 34 H (7-17) mg/dL Creatinine 1.43 H 1.30 H (0.7-1.0) mg/dL Glucose 109 95 (65-110) mg/dL Calcium 9.1 8.4 (8.4-10.2) mg/dL AST 97 H 60 H (14-36) U/L ALT 153 H 129 H (6-35) U/L Alkaline Phosphatase 57 45 (38-126) U/L Total Protein 7.0 6.0 L (6.3-8.2) g/dL Albumin 4.2 3.2 L (3.5-5.1) g/dL Intake and Output 08/27/24 08/28/24 08/28/24 23:59 07:59 15:59 Intake Total 291.1 550 170.5 Balance 291.1 550 170.5 Intake: IV 51.1 70 50.5 dilTIAZem 100 MG/100 ML 100 mg 51.1 70 50.5 In 100 ml @ 10 MG/HR 10 mls/hr IV CONT .Q10H [facility] Rx#:[id number] Oral 240 480 120 Other: # Unmeasured Voids 4 Patient Weight 08/28/24 23:59 Weight 67.7 kg
[2024-08-28] MEDS: METOPROLOL TARTRATE 50 MG TAB PO ×2 (13:13→20:10)
--- NOTE | 2024-08-28 13:19 | PM.IMPN ---
Progress Note: A&P Assessment and Plan (1) Atrial fibrillation: Qualifiers: Atrial fibrillation type: paroxysmal Qualified Code(s): I48.0 - Paroxysmal atrial fibrillation Code(s): I48.91 - Unspecified atrial fibrillation Status: Acute Assessment and Plan: Patient presents with elevated heart rate. EKG: showing AFib RVR, rate 132 CXR showing no acute cardiopulmonary disease Troponin: <0.012 x3 TSH low, T4 elevated consistent with hyperthyroidism, no history of AFib Diltiazem drip started. Echo - LV hyperdynamic with EF >70%, mild LV wall thickness, severely enlarged LA and mild valvular disease Cardiology consulted and appreciate their input CHADSVasc: 4 (HTN, Age, Gender, CVA) -> Eliquis 5 mg b.i.d. Telemetry monitoring Metoprolol added. Wean off Diltiazem as tolerated. May not convert given the severely enlarged LA. (2) Hyperthyroidism: Code(s): E05.90 - Thyrotoxicosis, unspecified without thyrotoxic crisis or storm Status: Acute Assessment and Plan: No previous history of thyroid dysfunction and presumably normal thyroid fxn last year. TSH <0.015, T4 5.95 on 08/27/24 Thyroid ultrasound showing normal thyroid. FT4 is 2-3x/normal so will start methimazole 20mg day. Check TSI, Thyrotropin receptor Ab. (3) Essential hypertension: Code(s): I10 - Essential (primary) hypertension Status: Acute Assessment and Plan: Patient's blood pressure was reviewed on 08/28 Blood pressure remains well controlled. Will continue to monitor (4) Anemia: Code(s): D64.9 - Anemia, unspecified Status: Acute Assessment and Plan: Normal baseline hgb. hgb was 11.4 on admission and dropped to 9.4. Leukopenia at 4.4k but plt count normal. Anemia workup ordered. (5) Stage 3b chronic kidney disease: Code(s): N18.32 - Chronic kidney disease, stage 3b Status: Acute Assessment and Plan: Cr stable at her baseline around 1.4 Follow Plan DVT Prophylaxis: Eliquis 5 mg b.i.d. Code Status: Full code Subjective Date/time seen: 08/28/24 13:19 Interval history: 74yo female with HLD, HTN, KUMAR (noncompliant with CPAP), and dementia presents here with an elevated heart rate, nausea, and vomiting. She is alert but unable to provide hx. +nausea. Hx of small CVAs and has known vascular dementia. TSH was normal last year per family. Review of Systems Review of Systems: ROS unobtainable: Yes unobtainable due to mental status Exam Narrative: AF 98.0 111/50 96 18 94% ra Gen - NARD Chest - CTA bilaterally, nml RR CV - irregular and tachycardic. Tele showing AFib with rate mostly controlled. Abd - Soft, NT/ND, Positive BS Ext - No pedal edema Neuro - Alert, pleasant but confused. Psych - Nml mood and affect Skin - Warm and dry Objective Data Vital Signs Vital Signs: Vital Signs - 24 hr 08/27/24 13:57 08/27/24 13:58 08/27/24 14:52 Temperature 98.6 F Pulse Rate 142 H 132 H 121 H Respiratory Rate 13 Blood Pressure 118/73 105/52 L Pulse Oximetry 96 Oxygen Delivery Fraction of Inspired Oxygen 08/27/24 17:10 08/27/24 17:10 08/27/24 18:00 Temperature 98.1 F Pulse Rate 119 H 119 H 103 H Respiratory Rate 20 Blood Pressure 100/47 L 100/47 L Pulse Oximetry 92 Oxygen Delivery Fraction of Inspired Oxygen 08/27/24 18:00 08/27/24 18:18 08/27/24 18:56 Temperature Pulse Rate 103 H 117 H Respiratory Rate Blood Pressure Pulse Oximetry Oxygen Delivery Room Air Fraction of Inspired Oxygen 08/27/24 19:54 08/27/24 20:00 08/27/24 20:00 Temperature 98.2 F Pulse Rate 107 H 104 H Respiratory Rate 16 Blood Pressure 102/58 L Pulse Oximetry 98 Oxygen Delivery Room Air Fraction of Inspired Oxygen 08/27/24 20:00 08/27/24 20:45 08/27/24 21:50 Temperature Pulse Rate 108 H 112 H Respiratory Rate Blood Pressure Pulse Oximetry 95 Oxygen Delivery Room Air Fraction of Inspired Oxygen 21 08/27/24 22:00 08/27/24 22:00 08/27/24 23:36 Temperature Pulse Rate 106 H 103 H Respiratory Rate Blood Pressure 100/57 L Pulse Oximetry Oxygen Delivery Room Air Fraction of Inspired Oxygen 08/27/24 23:59 08/28/24 00:00 08/28/24 00:00 Temperature 98.1 F Pulse Rate 106 H 103 H 103 H Respiratory Rate 16 Blood Pressure 117/42 L Pulse Oximetry 95 Oxygen Delivery Fraction of Inspired Oxygen 08/28/24 02:00 08/28/24 02:00 08/28/24 02:18 Temperature Pulse Rate 91 99 99 Respiratory Rate Blood Pressure 104/52 L Pulse Oximetry 93 Oxygen Delivery Fraction of Inspired Oxygen 08/28/24 03:00 08/28/24 03:31 08/28/24 04:00 Temperature Pulse Rate 101 H 100 Respiratory Rate Blood Pressure Pulse Oximetry Oxygen Delivery Room Air Fraction of Inspired Oxygen 08/28/24 04:00 08/28/24 04:00 08/28/24 06:00 Temperature 98.0 F Pulse Rate 98 106 H 100 Respiratory Rate 16 18 Blood Pressure 127/51 L 115/43 L Pulse Oximetry 97 95 Oxygen Delivery Fraction of Inspired Oxygen 08/28/24 06:00 08/28/24 06:00 08/28/24 08:00 Temperature Pulse Rate 101 H 94 130 H Respiratory Rate Blood Pressure 103/49 L Pulse Oximetry Oxygen Delivery Fraction of Inspired Oxygen 08/28/24 08:00 08/28/24 08:00 08/28/24 10:00 Temperature 98 F Pulse Rate 113 H 99 Respiratory Rate 18 Blood Pressure 103/49 L 125/52 L Pulse Oximetry 94 Oxygen Delivery Fraction of Inspired Oxygen 08/28/24 10:00 08/28/24 10:00 08/28/24 11:03 Temperature Pulse Rate 95 121 H 96 Respiratory Rate Blood Pressure 125/52 L 111/50 L Pulse Oximetry Oxygen Delivery Fraction of Inspired Oxygen 08/28/24 11:03 Temperature Pulse Rate 96 Respiratory Rate Blood Pressure 111/50 L Pulse Oximetry Oxygen Delivery Fraction of Inspired Oxygen Intake/Output Intake/Output: Intake & Output 08/25/24 08/26/24 08/27/24 08/28/24 23:59 23:59 23:59 23:59 Intake Total 1291.1 720.5 Balance 1291.1 720.5 Meds/Results Medications: Active Medications Generic Name Dose Route Start Last Admin Trade Name Freq PRN Reason Stop Dose Admin Acetaminophen 650 mg 08/27/24 15:57 08/27/24 17:57 Acetaminophen 325 Mg Tablet PO 650 mg Q4H PRN Administration Mild Pain (1-3) or Fever Alendronate Sodium 70 mg 03/31/25 09:00 Alendronate Sodium 70 Mg Tablet PO WEEKLY LINK Apixaban 5 mg 08/28/24 09:00 08/28/24 08:43 Apixaban 5 Mg Tablet PO 5 mg Q12HR LINK Administration Famotidine 20 mg 08/28/24 09:00 08/28/24 08:43 Famotidine 20 Mg Tablet PO 20 mg Q12HR LINK Administration Diltiazem HCl 100 mg in 100 mls @ 10 mls/hr 08/28/24 01:25 08/28/24 11:03 Cardizem 100 Mg/100 Ml IV CONT 10 mg/hr .Q10H LINK 10 mls/hr Administration 10 MG/HR Methimazole 5 mg 08/28/24 09:00 08/28/24 10:55 Methimazole 5 Mg Tab PO 5 mg QAM LINK Administration Metoprolol Tartrate 50 mg 08/28/24 12:25 08/28/24 13:13 Metoprolol Tartrate 50 Mg Tab PO 50 mg Q12HR LINK Administration Ondansetron HCl 4 mg 08/27/24 15:57 08/28/24 13:13 Ondansetron Inj 4 Mg/2 Ml Vial IV PUSH 4 mg Q4H PRN Administration Nausea Perflutren Lipid Microsphere 0 ml 08/27/24 18:13 Perflutren Lipid Microspheres 1.5 Ml Vial Diluted To 10 Ml Total Volume IV PUSH 08/30/24 18:13 ONCE PRN adequate visualization Protocol Rosuvastatin Calcium 5 mg 08/28/24 09:00 08/28/24 08:43 Rosuvastatin 5 Mg Tablet PO 5 mg DAILY LINK Administration Vitamin D 2,000 units 08/28/24 09:00 08/28/24 08:43 Cholecalciferol 1,000 Units Tablet PO 2,000 units DAILY LINK Administration Radiology Results: ITS Impressions Chest X-Ray 08/27/24 14:34 IMPRESSION: 1. No acute cardiopulmonary disease. Thyroid Ultrasound 08/27/24 16:38 IMPRESSION: 1. Normal thyroid ultrasound. Labs Labs: Laboratory Results - last 24 hr 08/27/24 08/27/24 08/27/24 13:57 16:40 19:57 WBC 4.4 L RBC 3.66 L Hgb 11.4 L Hct 34.1 L MCV 93.2 MCH 31.1 MCHC 33.4 RDW 11.0 L Plt Count 214 MPV 10.5 H Immature Gran % (Auto) 0.2 Neut % (Auto) 56.8 Lymph % (Auto) 29.2 [place] % (Auto) 11.9 H Eos % (Auto) 1.4 Baso % (Auto) 0.5 Lymph # (Auto) 1.28 [place] # (Auto) 0.5 Eos # (Auto) 0.1 Baso # (Auto) 0.0 Abs Immat Gran (auto) 0.01 Absolute Neuts (auto) 2.5 Absolute Nucleated RBC 0.000 Nucleated RBC % 0.0 PT 14.2 INR 1.1 APTT 32.6 Sodium 139 Potassium 4.4 Chloride 104 Carbon Dioxide 22 Anion Gap 13 H BUN 38 H D Creatinine 1.43 H Estim Creat Clear Calc 28 Estimated GFR 36 L Glucose 109 Calcium 9.1 Magnesium 2.0 Total Bilirubin 0.5 AST 97 H ALT 153 H Alkaline Phosphatase 57 Troponin I < 0.012 < 0.012 < 0.012 Total Protein 7.0 Albumin 4.2 Lipase 258 TSH (Reflex) < 0.015 L Free T4 5.95 H 08/28/24 03:42 WBC 4.0 L RBC 3.02 L Hgb 9.4 L Hct 28.4 L MCV 94.0 MCH 31.1 MCHC 33.1 RDW 11.2 L Plt Count 161 MPV 10.6 H Immature Gran % (Auto) 0.3 Neut % (Auto) 58.6 Lymph % (Auto) 26.0 [place] % (Auto) 13.3 H Eos % (Auto) 1.5 Baso % (Auto) 0.3 Lymph # (Auto) 1.04 [place] # (Auto) 0.5 Eos # (Auto) 0.1 Baso # (Auto) 0.0 Abs Immat Gran (auto) 0.01 Absolute Neuts (auto) 2.4 Absolute Nucleated RBC 0.000 Nucleated RBC % 0.0 PT INR APTT Sodium 138 Potassium 4.3 Chloride 107 Carbon Dioxide 22 Anion Gap 9 BUN 34 H Creatinine 1.30 H Estim Creat Clear Calc 30 Estimated GFR 40 L Glucose 95 Calcium 8.4 Magnesium Total Bilirubin 0.5 AST 60 H ALT 129 H Alkaline Phosphatase 45 Troponin I Total Protein 6.0 L Albumin 3.2 L Lipase TSH (Reflex) Free T4
[2024-08-28] MEDS: methiMAzole 5 MG TAB 15 MG PO (14:40)
[2024-08-28 14:56] LABS: Iron 40 ug/dL (37-170)
[2024-08-28 15:07] LABS: Percent Iron Saturation 18 % (20-50)
[2024-08-28 15:33] LABS: Thyroid Stimulating Hormone Reflex < 0.015 uIU/mL (0.465-4.68)
[2024-08-28 15:58] LABS: Free T4 Free Thyroxine Reflex 5.37 ng/dL (0.78-2.19)
[2024-08-28 16:05] LABS: Folic Acid 18.7 ng/mL (2.76->20)
[2024-08-28] MEDS: PROMETHAZINE HCL 25 MG/ML AMPUL IM (20:28)
[2024-08-28] MEDS: MELATONIN 5 MG TABLET 10 MG PO (20:28)
[2024-08-29] VITALS (25 sets, daily range): BP systolic 99–125; BP diastolic 44–61; PULSE 73–100; RESP 16–18; TEMP 36.5–37.2; O2SAT 90–94
[2024-08-29 04:24] LABS: Basophils Percent Auto 0.3 % (0.2-1.2); Eosinophils Absolute Auto 0.1 K/mm3 (0-0.3); Eosinophils Percent Auto 1.5 % (0-4.4); Hematocrit 30.6 % (37.0-47.0); Hemoglobin 9.8 g/dL (12.0-15.0); Immature Granulocyte Absolute 0.01 K/mm3 (0.00-0.031); Immature Granulocyte Percent A 0.2 % (0-0.5); Lymphocytes Absolute Auto 1.78 K/mm3 (0.9-3.2); Lymphocytes Percent Auto 29.6 % (18.3-44.2); Mean Corpuscular Hemoglobin 30.6 pg (26-34); Mean Corpuscular Volume 95.6 fl (80-100); Mean Platelet Volume 11.2 fl (7.4-10.4); Monocytes Absolute Auto 0.8 K/mm3 (0.1-0.6); Monocytes Percent Auto 12.8 % (2.6-8.5); Neutrophils Absolute Auto 3.3 K/mm3 (1.3-6.7); Neutrophils Percent Auto 55.6 % (45.5-73.1); Platelet Count Result 183 k/mm3 (150-375); Red Cell Distribution Width 11.4 % (11.5-14.5)
[2024-08-29 04:38] LABS: Alanine Aminotransferase 114 U/L (6-35); Albumin Level 3.6 g/dL (3.5-5.1); Alkaline Phosphatase 53 U/L (38-126); Anion Gap 13 mmol/L (4-12); Aspartate Amino Transferase 56 U/L (14-36); Bilirubin,Total 0.6 mg/dL (0.2-1.3); Blood Urea Nitrogen 39 mg/dL (7-17); Calcium 8.7 mg/dL (8.4-10.2); Carbon Dioxide 21 mmol/L (22-30); Chloride 103 mmol/L (98-107); Estimated CRCL calculation 25 ml/min; Estimated Glomerular Filt Rate 31; Glucose 96 mg/dL (65-110); Potassium 3.9 mmol/L (3.4-5.0); Sodium 137 mmol/L (137-145)
[2024-08-29] MEDS: dilTIAZem 100 MG/100 ML 100 MG/100 ML BAG 10 MG IV CONT (06:17)
[2024-08-29] MEDS: methiMAzole 10 MG TAB 20 MG PO (07:53)
[2024-08-29] MEDS: METOPROLOL TARTRATE 50 MG TAB PO ×2 (07:53→19:54)
[2024-08-29] MEDS: CHOLECALCIFEROL 1,000 UNITS TABLET 2000 UNITS PO (07:53)
[2024-08-29] MEDS: APIXABAN 5 MG TABLET PO ×2 (07:53→19:54)
[2024-08-29] MEDS: FAMOTIDINE 20 MG TABLET PO ×2 (07:54→19:54)
[2024-08-29] MEDS: ONDANSETRON INJ 4 MG/2 ML VIAL IV PUSH (07:54)
[2024-08-29] MEDS: ROSUVASTATIN 5 MG TABLET PO (07:54)
--- NOTE | 2024-08-29 10:07 | PM.IMPN ---
Progress Note: A&P Assessment and Plan (1) Atrial fibrillation: Qualifiers: Atrial fibrillation type: paroxysmal Qualified Code(s): I48.0 - Paroxysmal atrial fibrillation Code(s): I48.91 - Unspecified atrial fibrillation Status: Acute Assessment and Plan: Patient presents with elevated heart rate. EKG showing AFib RVR, rate 132 CXR showing no acute cardiopulmonary disease Troponin: <0.012 x3 TSH low, T4 elevated consistent with hyperthyroidism. No history of AFib or thyroid disease Diltiazem drip started. Oral metoprolol added. Echo showing LV hyperdynamic with EF >70%, mild LV wall thickness, severely enlarged LA and mild valvular disease Cardiology consulted and appreciate their input CHADSVasc: 4 (HTN, Age, Gender, CVA) -> Eliquis 5 mg b.i.d. Heart rate better controlled. Telemetry monitoring. May not convert given the severely enlarged LA. Transition to oral Diltiazem. (2) Hyperthyroidism: Code(s): E05.90 - Thyrotoxicosis, unspecified without thyrotoxic crisis or storm Status: Acute Assessment and Plan: No previous history of thyroid dysfunction and presumably normal thyroid fxn last year. TSH <0.015, T4 5.95 on 08/27/24 Thyroid ultrasound showing normal thyroid. FT4 is 2-3x/normal methimazole 20mg day started Thyrotropin receptor Ab pending. Check Pelvic US. may need Radioiodine uptake (3) Essential hypertension: Code(s): I10 - Essential (primary) hypertension Status: Acute Assessment and Plan: Patient's blood pressure was reviewed on 08/29 Blood pressure remains well controlled. Will continue to monitor (4) Anemia: Code(s): D64.9 - Anemia, unspecified Status: Acute Assessment and Plan: Normal baseline hgb. hgb was 11.4 on admission and dropped to 9.4. Leukopenia at 4.4k but plt count normal. B12 and folate normal. Iron level normal with low TIBC and iron sat of 18%. Ferritin normal. Hgb stable in the 9 range, WBC normal now. Follow. (5) Stage 3b chronic kidney disease: Code(s): N18.32 - Chronic kidney disease, stage 3b Status: Acute Assessment and Plan: Baseline Cr around 1.4. Cr higher today at 1.6. Follow Plan Elevated LFTs - Mostly AST/ALT and levels trending down. No abd pain. Probably related to presenting diagnosis. Follow for now. DVT Prophylaxis: Eliquis 5 mg b.i.d. Code Status: Full code Subjective Date/time seen: 08/29/24 10:07 Interval history: 74yo female with HLD, HTN, KUMAR (noncompliant with CPAP), and dementia presents here with an elevated heart rate, nausea, and vomiting. Slept okay. no CP or abd pain. Exam Narrative: AF 98.3 106/44 89 16 94% ra Gen - NARD Chest - CTA bilaterally, nml RR CV - irregular and tachycardic. Tele showing AFib with rate controlled. Abd - Soft, NT/ND, Positive BS Ext - No pedal edema Neuro - Alert, pleasant but confused. Psych - Nml mood and affect Skin - Warm and dry Objective Data Vital Signs Vital Signs: Vital Signs - 24 hr 08/28/24 11:03 08/28/24 11:03 08/28/24 12:00 Temperature Pulse Rate 96 96 97 Respiratory Rate Blood Pressure 111/50 L 111/50 L 125/53 L Pulse Oximetry Oxygen Delivery 08/28/24 12:00 08/28/24 12:00 08/28/24 12:00 Temperature 98 F Pulse Rate 100 78 Respiratory Rate 18 Blood Pressure 101/52 L Pulse Oximetry 95 Oxygen Delivery Room Air 08/28/24 14:00 08/28/24 14:00 08/28/24 14:05 Temperature Pulse Rate 83 81 95 Respiratory Rate Blood Pressure 97/51 L 125/52 L Pulse Oximetry Oxygen Delivery 08/28/24 16:00 08/28/24 16:00 08/28/24 16:00 Temperature Pulse Rate 77 77 Respiratory Rate Blood Pressure 91/49 L Pulse Oximetry Oxygen Delivery Room Air 08/28/24 16:35 08/28/24 18:00 08/28/24 18:00 Temperature 98.1 F Pulse Rate 81 78 89 Respiratory Rate 18 Blood Pressure 91/49 L 112/51 L Pulse Oximetry 95 Oxygen Delivery 08/28/24 20:00 08/28/24 20:00 08/28/24 20:00 Temperature 98.1 F Pulse Rate 81 91 Respiratory Rate 18 Blood Pressure 108/45 L Pulse Oximetry 93 Oxygen Delivery Room Air 08/28/24 20:09 08/28/24 20:09 08/28/24 20:10 Temperature Pulse Rate 79 79 79 Respiratory Rate Blood Pressure Pulse Oximetry Oxygen Delivery 08/28/24 20:32 08/28/24 21:46 08/28/24 22:00 Temperature Pulse Rate 79 76 81 Respiratory Rate Blood Pressure 108/45 L 105/58 L Pulse Oximetry 95 Oxygen Delivery 08/28/24 22:00 08/28/24 23:27 08/28/24 23:50 Temperature 98.0 F Pulse Rate 73 75 73 Respiratory Rate 18 Blood Pressure 105/58 L 104/50 L 104/50 L Pulse Oximetry 91 Oxygen Delivery 08/29/24 00:00 08/29/24 00:00 08/29/24 01:51 Temperature Pulse Rate 74 74 Respiratory Rate Blood Pressure 106/51 L Pulse Oximetry 94 Oxygen Delivery Room Air 08/29/24 02:00 08/29/24 02:00 08/29/24 03:36 Temperature 98.3 F Pulse Rate 74 76 86 Respiratory Rate 18 Blood Pressure 106/51 L 124/58 L Pulse Oximetry 94 Oxygen Delivery 08/29/24 04:00 08/29/24 04:00 08/29/24 05:18 Temperature Pulse Rate 80 80 80 Respiratory Rate Blood Pressure 124/58 L Pulse Oximetry Oxygen Delivery 08/29/24 06:00 08/29/24 06:09 08/29/24 06:17 Temperature Pulse Rate 100 97 97 Respiratory Rate Blood Pressure 124/51 L Pulse Oximetry 92 Oxygen Delivery 08/29/24 06:40 08/29/24 07:37 08/29/24 08:00 Temperature 98.1 F Pulse Rate 95 93 83 Respiratory Rate 18 Blood Pressure 124/51 L 111/45 L 123/54 L Pulse Oximetry 93 Oxygen Delivery 08/29/24 08:00 08/29/24 08:00 08/29/24 09:39 Temperature Pulse Rate 96 79 Respiratory Rate Blood Pressure 99/55 L Pulse Oximetry Oxygen Delivery Room Air 08/29/24 10:00 Temperature Pulse Rate 76 Respiratory Rate Blood Pressure Pulse Oximetry Oxygen Delivery Intake/Output Intake/Output: Intake & Output 08/26/24 08/27/24 08/28/24 08/29/24 23:59 23:59 23:59 23:59 Intake Total 1291.1 1808.3 420.3 Output Total 1000 200 Balance 1291.1 808.3 220.3 Meds/Results Medications: Active Medications Generic Name Dose Route Start Last Admin Trade Name Freq PRN Reason Stop Dose Admin Acetaminophen 650 mg 08/27/24 15:57 08/27/24 17:57 Acetaminophen 325 Mg Tablet PO 650 mg Q4H PRN Administration Mild Pain (1-3) or Fever Alendronate Sodium 70 mg 08/31/24 09:00 Alendronate Sodium 70 Mg Tablet PO WEEKLY LINK Apixaban 5 mg 08/28/24 09:00 08/29/24 07:53 Apixaban 5 Mg Tablet PO 5 mg Q12HR LINK Administration Famotidine 20 mg 08/28/24 09:00 08/29/24 07:54 Famotidine 20 Mg Tablet PO 20 mg Q12HR LINK Administration Diltiazem HCl 100 mg in 100 mls @ 10 mls/hr 08/28/24 01:25 08/29/24 08:00 Cardizem 100 Mg/100 Ml IV CONT 10 mg/hr .Q10H LINK 10 mls/hr Infusion 10 MG/HR Melatonin 10 mg 08/28/24 20:21 08/28/24 20:28 Melatonin 5 Mg Tablet PO 10 mg HS PRN Administration insomnia Methimazole 20 mg 08/29/24 09:00 08/29/24 07:53 Methimazole 10 Mg Tab PO 20 mg DAILY LINK Administration Metoprolol Tartrate 50 mg 08/28/24 12:25 08/29/24 07:53 Metoprolol Tartrate 50 Mg Tab PO 50 mg Q12HR LINK Administration Ondansetron HCl 4 mg 08/27/24 15:57 08/29/24 07:54 Ondansetron Inj 4 Mg/2 Ml Vial IV PUSH 4 mg Q4H PRN Administration Nausea Perflutren Lipid Microsphere 0 ml 08/27/24 18:13 Perflutren Lipid Microspheres 1.5 Ml Vial Diluted To 10 Ml Total Volume IV PUSH 08/30/24 18:13 ONCE PRN adequate visualization Protocol Rosuvastatin Calcium 5 mg 08/28/24 09:00 08/29/24 07:54 Rosuvastatin 5 Mg Tablet PO 5 mg DAILY LINK Administration Vitamin D 2,000 units 08/28/24 09:00 08/29/24 07:53 Cholecalciferol 1,000 Units Tablet PO 2,000 units DAILY LINK Administration Radiology Results: ITS Impressions Chest X-Ray 08/27/24 14:34 IMPRESSION: 1. No acute cardiopulmonary disease. Thyroid Ultrasound 08/27/24 16:38 IMPRESSION: 1. Normal thyroid ultrasound. Labs Labs: Laboratory Results - last 24 hr 08/28/24 08/29/24 14:25 03:55 WBC 6.0 RBC 3.20 L Hgb 9.8 L Hct 30.6 L MCV 95.6 MCH 30.6 MCHC 32.0 RDW 11.4 L Plt Count 183 MPV 11.2 H Immature Gran % (Auto) 0.2 Neut % (Auto) 55.6 Lymph % (Auto) 29.6 [place] % (Auto) 12.8 H Eos % (Auto) 1.5 Baso % (Auto) 0.3 Lymph # (Auto) 1.78 [place] # (Auto) 0.8 H Eos # (Auto) 0.1 Baso # (Auto) 0.0 Abs Immat Gran (auto) 0.01 Absolute Neuts (auto) 3.3 Absolute Nucleated RBC 0.000 Nucleated RBC % 0.0 Sodium 137 Potassium 3.9 Chloride 103 Carbon Dioxide 21 L Anion Gap 13 H BUN 39 H Creatinine 1.61 H Estim Creat Clear Calc 25 Estimated GFR 31 L Glucose 96 Calcium 8.7 Magnesium 2.0 Iron 40 TIBC 225 L % Saturation 18 L Ferritin 239.00 Total Bilirubin 0.6 AST 56 H ALT 114 H Alkaline Phosphatase 53 Total Protein 6.0 L Albumin 3.6 Vitamin B12 794.0 Folate 18.7 TSH (Reflex) < 0.015 L Free T4 5.37 H
[2024-08-29] MEDS: dilTIAZem HCL 60 MG TABLET PO ×3 (11:38→23:32)
--- NOTE | 2024-08-29 13:03 | P.PNCA_ITS ---
Progress Note: A&P Assessment and Plan (1) Atrial fibrillation with rapid ventricular response: Code(s): I48.91 - Unspecified atrial fibrillation Status: Acute Plan 1. Atrial fibrillation with RVR. New diagnosis for the patient. 2. Hyperthyroidism. 3. Hypertension 4. Hyperlipidemia 5. Obstructive sleep apnea, not on CPAP 6. Nonrheumatic aortic stenosis: Mild PLAN: -Diagnosis of AFIB discussed with patient, including management strategies of rate control vs rhythm control strategy, including cardioversions. Patient would prefer rate control strategy at this time. An echocardiogram is pending as well. Given hyperthyroid state, prefer to use beta debbie. Continue metoprolol. Transitioning off of diltiazem drip. Okay with Adding oral diltiazem and will adjust dosing p.r.n. based upon rate control. -[id number] of 3 due to age, gender, hypertension. Already started on Eliquis 5mg BID by primary team. Discussed with patient the indication for anticoagulation in atrial fibrillation, and she is agreeable to be on anticoagulation. Her daughter is a pharmacist, and she will check the cost of Eliquis with the patient's insurance. -Patient reports being diagnosed with KUMAR and tried a CPAP mask for about a month and then stopped as it was uncomfortable. Discussed the relation between KUMAR and atrial fibrillation, and she is willing to retry CPAP mask and/or discuss alternatives with her sleep medicine provider. -Started on Methimazole for hyperthyroidism. Recommend outpatient Endocrinology follow up. If she remains in atrial fibrillation as an outpatient, would recommend outpatient elective cardioversion after treatment of her hyperthyroid state Echo showed some mild aortic stenosis. Nothing significant to this point. Will follow as an outpatient. Subjective Date/time seen: 08/29/24 13:03 Interval history: 74yo female with HLD, HTN, KUMAR (noncompliant with CPAP), and dementia presents here with an elevated heart rate, nausea, and vomiting. Date of service 08/29/2024: Seems more appropriate this point. Denies any chest pain or shortness of breath. No syncope. No tran vomiting Review of Systems Review of Systems: All systems reviewed & are unremarkable except as noted in HPI and below Constitutional: Constitutional: Denies fatigue ENT: Reports Normal hearing present Cardiovascular: Cardiovascular: Denies chest pain Respiratory: Respiratory: Denies dyspnea on exertion Gastrointestinal: Gastrointestinal: Denies abdominal pain Genitourinary: Genitourinary: Denies hematuria Neurologic: Denies Abnormal speech present Endocrine: Endocrine: Denies change in body appearance Exam Const: General: comfortable and no acute distress HENMT: Mouth: Yes moist mucous membranes Eyes: General: appearance normal, both eyes and all related structures Sclera: sclerae normal Resp: Effort & Inspection: normal respiratory effort Auscultation: clear to auscultation bilaterally Cardio: Rate: tachycardic Rhythm: abnormal rhythm irregularly irregular Heart sounds: no murmurs Skin: General skin exam: normal color Neuro: Speech: normal speech Psych: Mental Status: mental status grossly normal Affect: normal affect Objective Data Vital Signs Vital Signs: Vital Signs - 24 hr 08/28/24 14:00 08/28/24 14:00 08/28/24 14:05 Temperature Pulse Rate 83 81 95 Respiratory Rate Blood Pressure 97/51 L 125/52 L Pulse Oximetry Oxygen Delivery 08/28/24 16:00 08/28/24 16:00 08/28/24 16:00 Temperature Pulse Rate 77 77 Respiratory Rate Blood Pressure 91/49 L Pulse Oximetry Oxygen Delivery Room Air 08/28/24 16:35 08/28/24 18:00 08/28/24 18:00 Temperature 36.7 C Pulse Rate 81 78 89 Respiratory Rate 18 Blood Pressure 91/49 L 112/51 L Pulse Oximetry 95 Oxygen Delivery 08/28/24 20:00 08/28/24 20:00 08/28/24 20:00 Temperature 36.7 C Pulse Rate 81 91 Respiratory Rate 18 Blood Pressure 108/45 L Pulse Oximetry 93 Oxygen Delivery Room Air 08/28/24 20:09 08/28/24 20:09 08/28/24 20:10 Temperature Pulse Rate 79 79 79 Respiratory Rate Blood Pressure Pulse Oximetry Oxygen Delivery 08/28/24 20:32 08/28/24 21:46 08/28/24 22:00 Temperature Pulse Rate 79 76 81 Respiratory Rate Blood Pressure 108/45 L 105/58 L Pulse Oximetry 95 Oxygen Delivery 08/28/24 22:00 08/28/24 23:27 08/28/24 23:50 Temperature 36.7 C Pulse Rate 73 75 73 Respiratory Rate 18 Blood Pressure 105/58 L 104/50 L 104/50 L Pulse Oximetry 91 Oxygen Delivery 08/29/24 00:00 08/29/24 00:00 08/29/24 01:51 Temperature Pulse Rate 74 74 Respiratory Rate Blood Pressure 106/51 L Pulse Oximetry 94 Oxygen Delivery Room Air 08/29/24 02:00 08/29/24 02:00 08/29/24 03:36 Temperature 36.8 C Pulse Rate 74 76 86 Respiratory Rate 18 Blood Pressure 106/51 L 124/58 L Pulse Oximetry 94 Oxygen Delivery 08/29/24 04:00 08/29/24 04:00 08/29/24 05:18 Temperature Pulse Rate 80 80 80 Respiratory Rate Blood Pressure 124/58 L Pulse Oximetry Oxygen Delivery 08/29/24 06:00 08/29/24 06:09 08/29/24 06:17 Temperature Pulse Rate 100 97 97 Respiratory Rate Blood Pressure 124/51 L Pulse Oximetry 92 Oxygen Delivery 08/29/24 06:40 08/29/24 07:37 08/29/24 08:00 Temperature 36.7 C Pulse Rate 95 93 83 Respiratory Rate 18 Blood Pressure 124/51 L 111/45 L 123/54 L Pulse Oximetry 93 Oxygen Delivery 08/29/24 08:00 08/29/24 08:00 08/29/24 09:39 Temperature Pulse Rate 96 79 Respiratory Rate Blood Pressure 99/55 L Pulse Oximetry Oxygen Delivery Room Air 08/29/24 10:00 08/29/24 10:00 08/29/24 11:44 Temperature 36.5 C Pulse Rate 76 76 79 Respiratory Rate 18 Blood Pressure 99/61 L 103/53 L Pulse Oximetry 92 Oxygen Delivery 08/29/24 12:00 08/29/24 12:45 Temperature Pulse Rate 85 80 Respiratory Rate Blood Pressure 103/53 L 99/59 L Pulse Oximetry Oxygen Delivery Intake/Output Intake/Output: Intake & Output 08/26/24 08/27/24 08/28/24 08/29/24 23:59 23:59 23:59 23:59 Intake Total 1291.1 1808.3 567.8 Output Total 1000 200 Balance 1291.1 808.3 367.8 Meds/Results Medications: Active Medications Generic Name Dose Route Start Last Admin Trade Name Freq PRN Reason Stop Dose Admin Acetaminophen 650 mg 08/27/24 15:57 08/27/24 17:57 Acetaminophen 325 Mg Tablet PO 650 mg Q4H PRN Administration Mild Pain (1-3) or Fever Alendronate Sodium 70 mg 08/31/24 09:00 Alendronate Sodium 70 Mg Tablet PO WEEKLY LINK Apixaban 5 mg 08/28/24 09:00 08/29/24 07:53 Apixaban 5 Mg Tablet PO 5 mg Q12HR LINK Administration Diltiazem HCl 60 mg 08/29/24 12:00 08/29/24 11:38 Diltiazem Hcl 60 Mg Tablet PO 60 mg Q6HR LINK Administration Famotidine 20 mg 08/28/24 09:00 08/29/24 07:54 Famotidine 20 Mg Tablet PO 20 mg Q12HR LINK Administration Melatonin 10 mg 08/28/24 20:21 08/28/24 20:28 Melatonin 5 Mg Tablet PO 10 mg HS PRN Administration insomnia Methimazole 20 mg 08/29/24 09:00 08/29/24 07:53 Methimazole 10 Mg Tab PO 20 mg DAILY LINK Administration Metoprolol Tartrate 50 mg 08/28/24 12:25 08/29/24 07:53 Metoprolol Tartrate 50 Mg Tab PO 50 mg Q12HR LINK Administration Ondansetron HCl 4 mg 08/27/24 15:57 08/29/24 07:54 Ondansetron Inj 4 Mg/2 Ml Vial IV PUSH 4 mg Q4H PRN Administration Nausea Perflutren Lipid Microsphere 0 ml 08/27/24 18:13 Perflutren Lipid Microspheres 1.5 Ml Vial Diluted To 10 Ml Total Volume IV PUSH 08/30/24 18:13 ONCE PRN adequate visualization Protocol Rosuvastatin Calcium 5 mg 08/28/24 09:00 08/29/24 07:54 Rosuvastatin 5 Mg Tablet PO 5 mg DAILY LINK Administration Vitamin D 2,000 units 08/28/24 09:00 08/29/24 07:53 Cholecalciferol 1,000 Units Tablet PO 2,000 units DAILY LINK Administration Radiology Results: ITS Impressions Chest X-Ray 08/27/24 14:34 IMPRESSION: 1. No acute cardiopulmonary disease. Thyroid Ultrasound 08/27/24 16:38 IMPRESSION: 1. Normal thyroid ultrasound. Labs Labs: Laboratory Results - last 24 hr 08/28/24 08/29/24 14:25 03:55 WBC 6.0 RBC 3.20 L Hgb 9.8 L Hct 30.6 L MCV 95.6 MCH 30.6 MCHC 32.0 RDW 11.4 L Plt Count 183 MPV 11.2 H Immature Gran % (Auto) 0.2 Neut % (Auto) 55.6 Lymph % (Auto) 29.6 [place] % (Auto) 12.8 H Eos % (Auto) 1.5 Baso % (Auto) 0.3 Lymph # (Auto) 1.78 [place] # (Auto) 0.8 H Eos # (Auto) 0.1 Baso # (Auto) 0.0 Abs Immat Gran (auto) 0.01 Absolute Neuts (auto) 3.3 Absolute Nucleated RBC 0.000 Nucleated RBC % 0.0 Sodium 137 Potassium 3.9 Chloride 103 Carbon Dioxide 21 L Anion Gap 13 H BUN 39 H Creatinine 1.61 H Estim Creat Clear Calc 25 Estimated GFR 31 L Glucose 96 Calcium 8.7 Magnesium 2.0 Iron 40 TIBC 225 L % Saturation 18 L Ferritin 239.00 Total Bilirubin 0.6 AST 56 H ALT 114 H Alkaline Phosphatase 53 Total Protein 6.0 L Albumin 3.6 Vitamin B12 794.0 Folate 18.7 TSH (Reflex) < 0.015 L Free T4 5.37 H Echo 1. Left ventricular chamber dimension is normal. 2. Left ventricular systolic function is hyperdynamic, estimated at >70%. 3. There is mildly increased left ventricular wall thickness. 4. Right ventricular systolic function is normal. 5. Left atrial chamber dimension is severely enlarged. 6. There is moderate aortic valve sclerosis. 7. There is mild aortic valve stenosis with a peak velocity of 286 cm/s, mean gradient of 16 mmHg, and aortic valve area of 1.8 cm2. 8. There is mild mitral valve regurgitation. 9. There is mild tricuspid valve regurgitation. 10. There is mild pulmonic regurgitation.
[2024-08-29] MEDS: MELATONIN 5 MG TABLET 10 MG PO (19:55)
--- NOTE | 2024-08-29 23:35 | PCRCNOTE ---
Patient received home CPAP machine today (+7 cmH2O), missing one magnetic clip for her nasal mask (small). Provided a hospital mask (medium) to use with her home machine. She states, not using humidity; RT set the heater to off setting. Advised patient to have RN call RT if any other issues arise.
[2024-08-30] VITALS (14 sets, daily range): BP systolic 103–124; BP diastolic 50–59; PULSE 70–104; RESP 16–20; TEMP 36.5–37.1; O2SAT 90–97
[2024-08-30 04:42] LABS: Basophils Percent Auto 0.4 % (0.2-1.2); Eosinophils Absolute Auto 0.1 K/mm3 (0-0.3); Eosinophils Percent Auto 2.2 % (0-4.4); Hematocrit 29.7 % (37.0-47.0); Hemoglobin 9.6 g/dL (12.0-15.0); Immature Granulocyte Absolute 0.02 K/mm3 (0.00-0.031); Immature Granulocyte Percent A 0.4 % (0-0.5); Lymphocytes Absolute Auto 1.67 K/mm3 (0.9-3.2); Lymphocytes Percent Auto 30.5 % (18.3-44.2); Mean Corpuscular HGB Conc 32.3 g/dl (32-36); Mean Corpuscular Hemoglobin 30.7 pg (26-34); Mean Corpuscular Volume 94.9 fl (80-100); Mean Platelet Volume 11.4 fl (7.4-10.4); Monocytes Absolute Auto 0.8 K/mm3 (0.1-0.6); Monocytes Percent Auto 14.1 % (2.6-8.5); Neutrophils Absolute Auto 2.9 K/mm3 (1.3-6.7); Neutrophils Percent Auto 52.4 % (45.5-73.1); Platelet Count Result 175 k/mm3 (150-375); Red Blood Count 3.13 M/mm3 (4.2-5.4); Red Cell Distribution Width 11.4 % (11.5-14.5); White Blood Count 5.5 K/mm3 (4.5-10.0)
[2024-08-30 04:53] LABS: Alanine Aminotransferase 111 U/L (6-35); Albumin Level 3.4 g/dL (3.5-5.1); Alkaline Phosphatase 67 U/L (38-126); Anion Gap 11 mmol/L (4-12); Aspartate Amino Transferase 50 U/L (14-36); Bilirubin,Total 0.7 mg/dL (0.2-1.3); Blood Urea Nitrogen 46 mg/dL (7-17); Calcium 8.5 mg/dL (8.4-10.2); Carbon Dioxide 21 mmol/L (22-30); Chloride 104 mmol/L (98-107); Estimated CRCL calculation 22 ml/min; Estimated Glomerular Filt Rate 28; Glucose 98 mg/dL (65-110); Potassium 3.8 mmol/L (3.4-5.0); Sodium 136 mmol/L (137-145)
[2024-08-30] MEDS: dilTIAZem HCL 60 MG TABLET PO (05:37)
[2024-08-30] MEDS: CHOLECALCIFEROL 1,000 UNITS TABLET 2000 UNITS PO (09:29)
[2024-08-30] MEDS: FAMOTIDINE 20 MG TABLET PO ×2 (09:29→20:19)
[2024-08-30] MEDS: APIXABAN 5 MG TABLET PO ×2 (09:29→20:18)
[2024-08-30] MEDS: methiMAzole 10 MG TAB 20 MG PO (09:29)
[2024-08-30] MEDS: METOPROLOL TARTRATE 50 MG TAB PO ×2 (09:30→20:18)
[2024-08-30] MEDS: SODIUM CHLORIDE 0.9% IV 1,000 ML 100 ML IV CONT (09:37)
[2024-08-30] MEDS: ROSUVASTATIN 5 MG TABLET PO (09:37)
--- NOTE | 2024-08-30 09:46 | P.PNCA_ITS ---
Progress Note: A&P Assessment and Plan (1) Atrial fibrillation with rapid ventricular response: Code(s): I48.91 - Unspecified atrial fibrillation Status: Acute Plan 1. Atrial fibrillation with RVR. New diagnosis for the patient. 2. Hyperthyroidism. 3. Hypertension 4. Hyperlipidemia 5. Obstructive sleep apnea, not on CPAP 6. Nonrheumatic aortic stenosis: Mild PLAN: -Diagnosis of AFIB discussed with patient, including management strategies of rate control vs rhythm control strategy, including cardioversions. Patient would prefer rate control strategy at this time. Given hyperthyroid state, prefer to use beta debbie. Continue metoprolol. I am actually going to stop her diltiazem completely. Will try to control her with metoprolol only. Will increase her metoprolol up to 75 mg p.o. b.i.d. As her hyperthyroid state also is treated, heart rate should come down and there is some concern with having 2 AV marianne agents on board as an outpatient as her hyperthyroid state resolves that she will become too bradycardic and have secondary iatrogenic issues related to bradycardia. Will therefore utilize metoprolol only and if need be up titrate depending on heart rate control. -[id number] of 3 due to age, gender, hypertension. Already started on Eliquis 5mg BID by primary team. Discussed with patient the indication for anticoagulation in atrial fibrillation, and she is agreeable to be on anticoagulation. Her daughter is a pharmacist, and she will check the cost of Eliquis with the patient's insurance. -Patient reports being diagnosed with KUMAR and tried a CPAP mask for about a month and then stopped as it was uncomfortable. Discussed the relation between KUMAR and atrial fibrillation, and she is willing to retry CPAP mask and/or discuss alternatives with her sleep medicine provider. -Started on Methimazole for hyperthyroidism. Recommend outpatient Endocrinology follow up. If she remains in atrial fibrillation as an outpatient, would recommend outpatient elective cardioversion after treatment of her hyperthyroid state Echo showed some mild aortic stenosis. Nothing significant to this point. Will follow as an outpatient. Subjective Date/time seen: 08/30/24 09:46 Interval history: 74yo female with HLD, HTN, KUMAR (noncompliant with CPAP), and dementia presents here with an elevated heart rate, nausea, and vomiting. Date of service 08/29/2024: Seems more appropriate this point. Denies any chest pain or shortness of breath. No syncope. No tran vomiting Date of service 08/30/2024: No chest pain or shortness of breath. Creatinine increasing up to 1.8 today. Heart rate controlled. Review of Systems Review of Systems: All systems reviewed & are unremarkable except as noted in HPI and below Constitutional: Constitutional: Denies fatigue ENT: Reports Normal hearing present Cardiovascular: Cardiovascular: Denies chest pain and Denies dyspnea on exertion Respiratory: Respiratory: Denies dyspnea on exertion Gastrointestinal: Gastrointestinal: Denies abdominal pain Genitourinary: Genitourinary: Denies hematuria Neurologic: Reports Normal hearing present and Denies Abnormal speech present Endocrine: Endocrine: Denies change in body appearance and Denies fatigue Exam Const: General: comfortable and no acute distress HENMT: Mouth: Yes moist mucous membranes Eyes: General: appearance normal, both eyes and all related structures Sclera: sclerae normal Resp: Effort & Inspection: normal respiratory effort Auscultation: clear to auscultation bilaterally Cardio: Rate: regular rate Rhythm: abnormal rhythm irregularly irregular Heart sounds: no murmurs Skin: General skin exam: normal color Neuro: Cranial nerves: Yes Normal hearing present Speech: normal speech and No Abnormal speech present Psych: Mental Status: mental status grossly normal Affect: normal affect Objective Data Vital Signs Vital Signs: Vital Signs - 24 hr 08/29/24 10:00 08/29/24 10:00 08/29/24 11:44 Temperature 36.5 C Pulse Rate 76 76 79 Respiratory Rate 18 Blood Pressure 99/61 L 103/53 L Pulse Oximetry 92 Oxygen Delivery 08/29/24 12:00 08/29/24 12:00 08/29/24 12:00 Temperature Pulse Rate 85 84 Respiratory Rate Blood Pressure 103/53 L Pulse Oximetry Oxygen Delivery Room Air 08/29/24 12:45 08/29/24 14:00 08/29/24 16:00 Temperature 36.5 C Pulse Rate 80 73 85 Respiratory Rate 18 Blood Pressure 99/59 L Pulse Oximetry 93 Oxygen Delivery 08/29/24 16:00 08/29/24 16:00 08/29/24 17:27 Temperature 36.8 C Pulse Rate 78 89 Respiratory Rate 16 Blood Pressure 106/44 L Pulse Oximetry 94 Oxygen Delivery Room Air 08/29/24 18:00 08/29/24 19:54 08/29/24 20:00 Temperature 37.2 C Pulse Rate 85 88 84 Respiratory Rate 16 Blood Pressure 109/48 L Pulse Oximetry 90 Oxygen Delivery 08/29/24 20:00 08/29/24 20:00 08/29/24 22:00 Temperature Pulse Rate 94 78 Respiratory Rate Blood Pressure Pulse Oximetry Oxygen Delivery Room Air 08/29/24 23:29 08/29/24 23:57 08/30/24 00:00 Temperature 37.0 C Pulse Rate 84 Respiratory Rate 16 Blood Pressure 125/53 L Pulse Oximetry 90 Oxygen Delivery CPAP Room Air 08/30/24 00:00 08/30/24 01:50 08/30/24 03:09 Temperature Pulse Rate 90 90 Respiratory Rate Blood Pressure Pulse Oximetry Oxygen Delivery Room Air 08/30/24 04:00 08/30/24 04:00 08/30/24 06:00 Temperature 37.1 C Pulse Rate 91 100 95 Respiratory Rate 16 Blood Pressure 112/51 L Pulse Oximetry 91 Oxygen Delivery 08/30/24 08:00 Temperature 36.5 C Pulse Rate 88 Respiratory Rate 16 Blood Pressure 104/50 L Pulse Oximetry 92 Oxygen Delivery Intake/Output Intake/Output: Intake & Output 08/27/24 08/28/24 08/29/24 08/30/24 23:59 23:59 23:59 23:59 Intake Total 1291.1 1808.3 882.8 250 Output Total 1000 200 Balance 1291.1 808.3 682.8 250 Meds/Results Medications: Active Medications Generic Name Dose Route Start Last Admin Trade Name Freq PRN Reason Stop Dose Admin Acetaminophen 650 mg 08/27/24 15:57 08/27/24 17:57 Acetaminophen 325 Mg Tablet PO 650 mg Q4H PRN Administration Mild Pain (1-3) or Fever Alendronate Sodium 70 mg 08/31/24 09:00 Alendronate Sodium 70 Mg Tablet PO WEEKLY LINK Apixaban 5 mg 08/28/24 09:00 08/30/24 09:29 Apixaban 5 Mg Tablet PO 5 mg Q12HR LINK Administration Diltiazem HCl 60 mg 08/29/24 12:00 08/30/24 05:37 Diltiazem Hcl 60 Mg Tablet PO 60 mg Q6HR LINK Administration Famotidine 20 mg 08/28/24 09:00 08/30/24 09:29 Famotidine 20 Mg Tablet PO 20 mg Q12HR LINK Administration Sodium Chloride 1,000 mls @ 100 mls/hr 08/30/24 08:45 08/30/24 09:37 Normal Saline Iv IV CONT 08/30/24 13:44 100 mls/hr .Q10H LINK Administration Melatonin 10 mg 08/28/24 20:21 08/29/24 19:55 Melatonin 5 Mg Tablet PO 10 mg HS PRN Administration insomnia Methimazole 20 mg 08/29/24 09:00 08/30/24 09:29 Methimazole 10 Mg Tab PO 20 mg DAILY LINK Administration Metoprolol Tartrate 50 mg 08/28/24 12:25 08/30/24 09:30 Metoprolol Tartrate 50 Mg Tab PO 50 mg Q12HR LINK Administration Ondansetron HCl 4 mg 08/27/24 15:57 08/29/24 07:54 Ondansetron Inj 4 Mg/2 Ml Vial IV PUSH 4 mg Q4H PRN Administration Nausea Perflutren Lipid Microsphere 0 ml 08/27/24 18:13 Perflutren Lipid Microspheres 1.5 Ml Vial Diluted To 10 Ml Total Volume IV PUSH 08/30/24 18:13 ONCE PRN adequate visualization Protocol Rosuvastatin Calcium 5 mg 08/28/24 09:00 08/30/24 09:37 Rosuvastatin 5 Mg Tablet PO 5 mg DAILY LINK Administration Vitamin D 2,000 units 08/28/24 09:00 08/30/24 09:29 Cholecalciferol 1,000 Units Tablet PO 2,000 units DAILY LINK Administration Radiology Results: ITS Impressions Chest X-Ray 08/27/24 14:34 IMPRESSION: 1. No acute cardiopulmonary disease. Thyroid Ultrasound 08/27/24 16:38 IMPRESSION: 1. Normal thyroid ultrasound. Labs Labs: Laboratory Results - last 24 hr 08/30/24 04:02 WBC 5.5 RBC 3.13 L Hgb 9.6 L Hct 29.7 L MCV 94.9 MCH 30.7 MCHC 32.3 RDW 11.4 L Plt Count 175 MPV 11.4 H Immature Gran % (Auto) 0.4 Neut % (Auto) 52.4 Lymph % (Auto) 30.5 [place] % (Auto) 14.1 H Eos % (Auto) 2.2 Baso % (Auto) 0.4 Lymph # (Auto) 1.67 [place] # (Auto) 0.8 H Eos # (Auto) 0.1 Baso # (Auto) 0.0 Abs Immat Gran (auto) 0.02 Absolute Neuts (auto) 2.9 Absolute Nucleated RBC 0.000 Nucleated RBC % 0.0 Sodium 136 L Potassium 3.8 Chloride 104 Carbon Dioxide 21 L Anion Gap 11 BUN 46 H Creatinine 1.80 H Estim Creat Clear Calc 22 Estimated GFR 28 L Glucose 98 Calcium 8.5 Total Bilirubin 0.7 AST 50 H ALT 111 H Alkaline Phosphatase 67 Total Protein 6.0 L Albumin 3.4 L
[2024-08-30] MEDS: METOPROLOL TARTRATE 25 MG TABLET PO ×2 (10:17→20:19)
--- NOTE | 2024-08-30 12:09 | P.PNIM_ITS ---
Progress Note: A&P Assessment and Plan (1) Atrial fibrillation: Qualifiers: Atrial fibrillation type: paroxysmal Qualified Code(s): I48.0 - Paroxysmal atrial fibrillation Code(s): I48.91 - Unspecified atrial fibrillation Status: Acute Assessment and Plan: Patient presents with elevated heart rate. EKG showing AFib RVR, rate 132. CXR showing no acute cardiopulmonary disease. Troponin was <0.012 x 3. TSH low, FT4 elevated consistent with hyperthyroidism. No history of AFib or thyroid disease Diltiazem drip started. Oral metoprolol added. Echo showing LV hyperdynamic with EF >70%, mild LV wall thickness, severely enlarged LA and mild valvular disease Cardiology consulted and appreciate their input. [id number]: 5 (HTN, Age, Gender, CVA) -> Eliquis started. Heart rate better controlled. May not convert given the severely enlarged LA. Discussed with Cardiology. Concern for over-correction of her heart rate so Metoprolol advanced and Diltiazem stopped. Continue telemetry monitoring. (2) Hyperthyroidism: Code(s): E05.90 - Thyrotoxicosis, unspecified without thyrotoxic crisis or storm Status: Acute Assessment and Plan: No previous history of thyroid dysfunction and presumably normal thyroid fxn last year. TSH <0.015, T4 5.95 on 08/27/24 Thyroid ultrasound showing normal thyroid. FT4 is 2-3x/normal so methimazole 20mg day started Thyrotropin receptor Ab pending. Pelvic US ordered. May need Radioiodine uptake (3) Essential hypertension: Code(s): I10 - Essential (primary) hypertension Status: Acute Assessment and Plan: Patient's blood pressure was reviewed on 08/30 Blood pressure remains well controlled. Will continue to monitor (4) Anemia: Code(s): D64.9 - Anemia, unspecified Status: Acute Assessment and Plan: Normal baseline hgb. Hgb was 11.4 on admission and dropped to 9.4. Leukopenia at 4.4k but plt count normal. B12 and folate normal. Iron level normal with low TIBC and iron sat of 18%. Ferritin normal. Hgb remaining stable in the 9 range, WBC normal now. Follow. (5) Stage 3b chronic kidney disease: Code(s): N18.32 - Chronic kidney disease, stage 3b Status: Acute Assessment and Plan: Baseline Cr around 1.4. Cr was 1.3 on admission but has climbed to 1.8 today. Her HCTZ and lisinopril have been on hold here. Eating well here. Related to mild ATN from AFib,hyperthyroidism? Check urine studies. Start IV fluids for 1/2L and repeat BMP. Follow Plan Elevated LFTs - Present on admission. Mostly AST/ALT and levels trending down. No abd pain. Probably related to presenting diagnosis. Follow for now. Will need outpatient monitoring given that she is on methimazole. DVT Prophylaxis: Eliquis Code Status: Full code Subjective Date/time seen: 08/30/24 12:09 Interval history: 74yo female with HLD, HTN, KUMAR (noncompliant with CPAP), and dementia presents here with an elevated heart rate, nausea, and vomiting. No problems overnight. No CP or SOB. Exam Narrative: AF 97.7 104/50 81 16 92% ra Gen - NARD Chest - CTA bilaterally, nml RR CV - irregularly irregular. Tele showing AFib with rate controlled. Abd - Soft, NT/ND, Positive BS Ext - No pedal edema Neuro - Alert, pleasant but confused. Psych - Nml mood and affect Skin - Warm and dry Objective Data Vital Signs Vital Signs: Vital Signs - 24 hr 08/29/24 12:45 08/29/24 14:00 08/29/24 16:00 Temperature 97.7 F Pulse Rate 80 73 85 Respiratory Rate 18 Blood Pressure 99/59 L Pulse Oximetry 93 Oxygen Delivery 08/29/24 16:00 08/29/24 16:00 08/29/24 17:27 Temperature 98.3 F Pulse Rate 78 89 Respiratory Rate 16 Blood Pressure 106/44 L Pulse Oximetry 94 Oxygen Delivery Room Air 08/29/24 18:00 08/29/24 19:54 08/29/24 20:00 Temperature 99 F Pulse Rate 85 88 84 Respiratory Rate 16 Blood Pressure 109/48 L Pulse Oximetry 90 Oxygen Delivery 08/29/24 20:00 08/29/24 20:00 08/29/24 22:00 Temperature Pulse Rate 94 78 Respiratory Rate Blood Pressure Pulse Oximetry Oxygen Delivery Room Air 08/29/24 23:29 08/29/24 23:57 08/30/24 00:00 Temperature 98.6 F Pulse Rate 84 Respiratory Rate 16 Blood Pressure 125/53 L Pulse Oximetry 90 Oxygen Delivery CPAP Room Air 08/30/24 00:00 08/30/24 01:50 08/30/24 03:09 Temperature Pulse Rate 90 90 Respiratory Rate Blood Pressure Pulse Oximetry Oxygen Delivery Room Air 08/30/24 04:00 08/30/24 04:00 08/30/24 06:00 Temperature 98.8 F Pulse Rate 91 100 95 Respiratory Rate 16 Blood Pressure 112/51 L Pulse Oximetry 91 Oxygen Delivery 08/30/24 08:00 08/30/24 08:00 08/30/24 08:00 Temperature 97.7 F Pulse Rate 88 97 Respiratory Rate 16 Blood Pressure 104/50 L Pulse Oximetry 92 Oxygen Delivery Room Air 08/30/24 10:00 Temperature Pulse Rate 102 H Respiratory Rate Blood Pressure Pulse Oximetry Oxygen Delivery Intake/Output Intake/Output: Intake & Output 08/27/24 08/28/24 08/29/24 08/30/24 23:59 23:59 23:59 23:59 Intake Total 1291.1 1808.3 882.8 250 Output Total 1000 200 Balance 1291.1 808.3 682.8 250 Meds/Results Medications: Active Medications Generic Name Dose Route Start Last Admin Trade Name Freq PRN Reason Stop Dose Admin Acetaminophen 650 mg 08/27/24 15:57 08/27/24 17:57 Acetaminophen 325 Mg Tablet PO 650 mg Q4H PRN Administration Mild Pain (1-3) or Fever Alendronate Sodium 70 mg 08/31/24 09:00 Alendronate Sodium 70 Mg Tablet PO WEEKLY LINK Apixaban 5 mg 08/28/24 09:00 08/30/24 09:29 Apixaban 5 Mg Tablet PO 5 mg Q12HR LINK Administration Famotidine 20 mg 08/28/24 09:00 08/30/24 09:29 Famotidine 20 Mg Tablet PO 20 mg Q12HR LINK Administration Sodium Chloride 1,000 mls @ 100 mls/hr 08/30/24 08:45 08/30/24 09:37 Normal Saline Iv IV CONT 08/30/24 13:44 100 mls/hr .Q10H LINK Administration Melatonin 10 mg 08/28/24 20:21 08/29/24 19:55 Melatonin 5 Mg Tablet PO 10 mg HS PRN Administration insomnia Methimazole 20 mg 08/29/24 09:00 08/30/24 09:29 Methimazole 10 Mg Tab PO 20 mg DAILY LIKN Administration Metoprolol Tartrate 25 mg 08/30/24 10:00 08/30/24 10:17 Metoprolol Tartrate 25 Mg Tablet PO 25 mg Q12HR LINK Administration Metoprolol Tartrate 50 mg 08/30/24 10:00 08/30/24 10:16 Metoprolol Tartrate 50 Mg Tab PO Not Given Q12HR [facility] Ondansetron HCl 4 mg 08/27/24 15:57 08/29/24 07:54 Ondansetron Inj 4 Mg/2 Ml Vial IV PUSH 4 mg Q4H PRN Administration Nausea Perflutren Lipid Microsphere 0 ml 08/27/24 18:13 Perflutren Lipid Microspheres 1.5 Ml Vial Diluted To 10 Ml Total Volume IV PUSH 08/30/24 18:13 ONCE PRN adequate visualization Protocol Rosuvastatin Calcium 5 mg 08/28/24 09:00 08/30/24 09:37 Rosuvastatin 5 Mg Tablet PO 5 mg DAILY LINK Administration Vitamin D 2,000 units 08/28/24 09:00 08/30/24 09:29 Cholecalciferol 1,000 Units Tablet PO 2,000 units DAILY LINK Administration Radiology Results: ITS Impressions Chest X-Ray 08/27/24 14:34 IMPRESSION: 1. No acute cardiopulmonary disease. Thyroid Ultrasound 08/27/24 16:38 IMPRESSION: 1. Normal thyroid ultrasound. Labs Labs: Laboratory Results - last 24 hr 08/30/24 04:02 WBC 5.5 RBC 3.13 L Hgb 9.6 L Hct 29.7 L MCV 94.9 MCH 30.7 MCHC 32.3 RDW 11.4 L Plt Count 175 MPV 11.4 H Immature Gran % (Auto) 0.4 Neut % (Auto) 52.4 Lymph % (Auto) 30.5 [place] % (Auto) 14.1 H Eos % (Auto) 2.2 Baso % (Auto) 0.4 Lymph # (Auto) 1.67 [place] # (Auto) 0.8 H Eos # (Auto) 0.1 Baso # (Auto) 0.0 Abs Immat Gran (auto) 0.02 Absolute Neuts (auto) 2.9 Absolute Nucleated RBC 0.000 Nucleated RBC % 0.0 Sodium 136 L Potassium 3.8 Chloride 104 Carbon Dioxide 21 L Anion Gap 11 BUN 46 H Creatinine 1.80 H Estim Creat Clear Calc 22 Estimated GFR 28 L Glucose 98 Calcium 8.5 Total Bilirubin 0.7 AST 50 H ALT 111 H Alkaline Phosphatase 67 Total Protein 6.0 L Albumin 3.4 L
[2024-08-30 16:48] LABS: Anion Gap 12 mmol/L (4-12); Blood Urea Nitrogen 47 mg/dL (7-17); Calcium 8.4 mg/dL (8.4-10.2); Carbon Dioxide 18 mmol/L (22-30); Chloride 104 mmol/L (98-107); Creatine Kinase 136 U/L (30-135); Estimated CRCL calculation 26 ml/min; Estimated Glomerular Filt Rate 33; Glucose 132 mg/dL (65-110); Potassium 4.4 mmol/L (3.4-5.0); Sodium 134 mmol/L (137-145)
[2024-08-30 20:06] LABS: Add Urine Microscopic? YES; Appearance Urine Cloudy (Clear); Bacteria Urine None Seen /hpf; Bilirubin Urine Negative (Negative); Blood Urine Negative (Negative); Color Urine Yellow (Yellow); Glucose Urine UA Negative (Negative); Ketones Urine Negative (Negative); Leukocyte Esterase Ur 3+ LEU/UL (Negative); Nitrate Urine Negative (Negative); Protein Urine Negative (Negative); RBC Urine 0-2 /hpf (0-2); Specific Grav Ur 1.019 (1.001-1.035); Squamous Epithelial Cell Urine Moderate /hpf (Few); Urobilinogen Urine 0.2 mg/dL (<2.0); WBC Urine 51-100 /hpf (0-3)
[2024-08-30 20:10] LABS: Sodium Urine Random 10 meq/L
[2024-08-30 21:45] LABS: Eosinophil Urine None Seen % (None Seen); Urine Eos QC 2nd Tech Confirmed
[2024-08-31] VITALS (11 sets, daily range): BP systolic 108–130; BP diastolic 52–96; PULSE 91–107; RESP 14–20; TEMP 36.6–36.7; O2SAT 95–99
[2024-08-31 04:47] LABS: Basophils Percent Auto 0.5 % (0.2-1.2); Eosinophils Absolute Auto 0.2 K/mm3 (0-0.3); Eosinophils Percent Auto 4.8 % (0-4.4); Hematocrit 28.7 % (37.0-47.0); Hemoglobin 9.3 g/dL (12.0-15.0); Immature Granulocyte Absolute 0.01 K/mm3 (0.00-0.031); Immature Granulocyte Percent A 0.3 % (0-0.5); Lymphocytes Absolute Auto 1.37 K/mm3 (0.9-3.2); Lymphocytes Percent Auto 34.4 % (18.3-44.2); Mean Corpuscular HGB Conc 32.4 g/dl (32-36); Mean Corpuscular Hemoglobin 30.9 pg (26-34); Mean Corpuscular Volume 95.3 fl (80-100); Mean Platelet Volume 11.6 fl (7.4-10.4); Monocytes Absolute Auto 0.6 K/mm3 (0.1-0.6); Monocytes Percent Auto 14.8 % (2.6-8.5); Neutrophils Absolute Auto 1.8 K/mm3 (1.3-6.7); Neutrophils Percent Auto 45.2 % (45.5-73.1); Platelet Count Result 167 k/mm3 (150-375); Red Blood Count 3.01 M/mm3 (4.2-5.4); Red Cell Distribution Width 11.2 % (11.5-14.5)
[2024-08-31 05:09] LABS: Alanine Aminotransferase 87 U/L (6-35); Alkaline Phosphatase 72 U/L (38-126); Anion Gap 8 mmol/L (4-12); Aspartate Amino Transferase 37 U/L (14-36); Bilirubin,Total 0.5 mg/dL (0.2-1.3); Blood Urea Nitrogen 41 mg/dL (7-17); Calcium 8.5 mg/dL (8.4-10.2); Carbon Dioxide 22 mmol/L (22-30); Chloride 107 mmol/L (98-107); Estimated CRCL calculation 27 ml/min; Estimated Glomerular Filt Rate 35; Glucose 91 mg/dL (65-110); Magnesium 2.2 mg/dL (1.6-2.3); Potassium 4.2 mmol/L (3.4-5.0); Sodium 137 mmol/L (137-145)
[2024-08-31] MEDS: APIXABAN 5 MG TABLET PO (08:22)
[2024-08-31] MEDS: CHOLECALCIFEROL 1,000 UNITS TABLET 2000 UNITS PO (08:22)
[2024-08-31] MEDS: METOPROLOL TARTRATE 25 MG TABLET PO (08:22)
[2024-08-31] MEDS: ALENDRONATE SODIUM 70 MG TABLET PO (08:22)
[2024-08-31] MEDS: ROSUVASTATIN 5 MG TABLET PO (08:22)
[2024-08-31] MEDS: methiMAzole 10 MG TAB 20 MG PO (08:23)
[2024-08-31] MEDS: METOPROLOL TARTRATE 50 MG TAB PO (08:23)
[2024-08-31] MEDS: FAMOTIDINE 20 MG TABLET PO (08:23)
--- NOTE | 2024-08-31 12:37 | PM.PNCARD ---
Progress Note: A&P Assessment and Plan (1) Atrial fibrillation with rapid ventricular response: Code(s): I48.91 - Unspecified atrial fibrillation Status: Acute (2) Essential hypertension: Code(s): I10 - Essential (primary) hypertension Status: Acute (3) Mixed hyperlipidemia: Code(s): E78.2 - Mixed hyperlipidemia Status: Acute Plan 79-year-old woman with hypertension and hyperlipidemia who was recently diagnosed with hyperthyroidism now presents with nausea vomiting and found to have atrial fibrillation with rapid ventricular rates Atrial fibrillation -presumably new onset -will increase metoprolol to 100 mg p.o. b.i.d. -continue Eliquis 5 mg p.o. b.i.d. Hypertension -continue Lopressor 100 mg p.o. b.i.d. Hyperlipidemia -continue rosuvastatin 5 every evening She is acceptable for discharge from cardiac perspective and will follow up outpatient in our clinic Subjective Date/time seen: 08/31/24 12:37 Interval history: No complaints this morning. Overall feels well and denies feeling unwell. Review of Systems Cardiovascular: Cardiovascular: Reports as per HPI Respiratory: Respiratory: Reports as per HPI Exam Const: General: comfortable HENMT: Mouth: Yes dry mucous membranes Eyes: EOM: EOMs intact bilaterally Neck: Neck: no JVD Resp: Effort & Inspection: normal respiratory effort Auscultation: clear to auscultation bilaterally Cardio: Rate: tachycardic Rhythm: abnormal rhythm Neuro: Speech: normal speech Extrem: General: pedal edema Objective Data Vital Signs Vital Signs: Vital Signs - 24 hr 08/30/24 14:00 08/30/24 16:00 08/30/24 16:00 Temperature 37.0 C Pulse Rate 83 97 92 Respiratory Rate 20 Blood Pressure 117/56 L Pulse Oximetry 90 Oxygen Delivery Fraction of Inspired Oxygen 08/30/24 16:00 08/30/24 18:00 08/30/24 20:00 Temperature 36.7 C Pulse Rate 104 H 70 Respiratory Rate 18 Blood Pressure 124/59 L Pulse Oximetry 97 Oxygen Delivery Room Air Fraction of Inspired Oxygen 08/30/24 20:00 08/30/24 20:00 08/30/24 20:18 Temperature Pulse Rate 94 94 100 Respiratory Rate 18 Blood Pressure Pulse Oximetry 97 Oxygen Delivery Room Air Fraction of Inspired Oxygen 08/30/24 20:19 08/30/24 21:37 08/31/24 00:00 Temperature Pulse Rate 100 90 91 Respiratory Rate 18 Blood Pressure Pulse Oximetry 97 Oxygen Delivery Room Air Fraction of Inspired Oxygen 21 08/31/24 00:00 08/31/24 00:00 08/31/24 02:00 Temperature 36.7 C Pulse Rate 91 94 98 Respiratory Rate 16 Blood Pressure 130/52 L Pulse Oximetry 96 Oxygen Delivery Fraction of Inspired Oxygen 08/31/24 03:02 08/31/24 04:00 08/31/24 04:00 Temperature 36.6 C Pulse Rate 102 H 93 Respiratory Rate 18 18 Blood Pressure 126/54 L Pulse Oximetry 95 95 Oxygen Delivery CPAP CPAP Fraction of Inspired Oxygen 21 08/31/24 04:00 08/31/24 06:00 08/31/24 07:51 Temperature 36.6 C Pulse Rate 93 96 104 H Respiratory Rate 20 Blood Pressure 108/96 H Pulse Oximetry 96 Oxygen Delivery Fraction of Inspired Oxygen 08/31/24 08:00 08/31/24 08:00 08/31/24 08:22 Temperature Pulse Rate 107 H 104 H Respiratory Rate Blood Pressure Pulse Oximetry Oxygen Delivery Room Air Fraction of Inspired Oxygen 08/31/24 08:23 08/31/24 10:00 08/31/24 12:00 Temperature 36.7 C Pulse Rate 104 H 98 93 Respiratory Rate 14 Blood Pressure 128/60 Pulse Oximetry 99 Oxygen Delivery Fraction of Inspired Oxygen 08/31/24 12:00 08/31/24 12:00 Temperature Pulse Rate 103 H Respiratory Rate Blood Pressure Pulse Oximetry Oxygen Delivery Room Air Fraction of Inspired Oxygen Intake/Output Intake/Output: Intake & Output 08/28/24 08/29/24 08/30/24 08/31/24 23:59 23:59 23:59 23:59 Intake Total 1808.3 882.8 2070 758 Output Total 1000 200 100 Balance 808.3 682.8 1970 758 Meds/Results Medications: Active Medications Generic Name Dose Route Start Last Admin Trade Name Freq PRN Reason Stop Dose Admin Acetaminophen 650 mg 08/27/24 15:57 08/27/24 17:57 Acetaminophen 325 Mg Tablet PO 650 mg Q4H PRN Administration Mild Pain (1-3) or Fever Alendronate Sodium 70 mg 08/31/24 09:00 08/31/24 08:22 Alendronate Sodium 70 Mg Tablet PO 70 mg WEEKLY LINK Administration Apixaban 5 mg 08/28/24 09:00 08/31/24 08:22 Apixaban 5 Mg Tablet PO 5 mg Q12HR LINK Administration Famotidine 20 mg 08/28/24 09:00 08/31/24 08:23 Famotidine 20 Mg Tablet PO 20 mg Q12HR LINK Administration Melatonin 10 mg 08/28/24 20:21 08/29/24 19:55 Melatonin 5 Mg Tablet PO 10 mg HS PRN Administration insomnia Methimazole 20 mg 08/29/24 09:00 08/31/24 08:23 Methimazole 10 Mg Tab PO 20 mg DAILY LINK Administration Metoprolol Tartrate 100 mg 08/31/24 09:00 08/31/24 09:31 Metoprolol Tartrate 50 Mg Tab PO Not Given Q12HR [facility] Ondansetron HCl 4 mg 08/27/24 15:57 08/29/24 07:54 Ondansetron Inj 4 Mg/2 Ml Vial IV PUSH 4 mg Q4H PRN Administration Nausea Rosuvastatin Calcium 5 mg 08/28/24 09:00 08/31/24 08:22 Rosuvastatin 5 Mg Tablet PO 5 mg DAILY LINK Administration Vitamin D 2,000 units 08/28/24 09:00 08/31/24 08:22 Cholecalciferol 1,000 Units Tablet PO 2,000 units DAILY LINK Administration Radiology Results: ITS Impressions Chest X-Ray 08/27/24 14:34 IMPRESSION: 1. No acute cardiopulmonary disease. Thyroid Ultrasound 08/27/24 16:38 IMPRESSION: 1. Normal thyroid ultrasound. Pelvic/Transvag US 08/30/24 14:11 IMPRESSION: Findings within the uterus suggesting prior fibroid disease. Despite prolonged interrogation, neither ovary was visualized. Unfortunately during the transvaginal portion of the examination, the bladder was full. Repeat evaluation following bladder emptying is recommended for complete interrogation. Labs Labs: Laboratory Results - last 24 hr 08/30/24 08/30/24 08/31/24 16:10 19:50 04:09 WBC 4.0 L RBC 3.01 L Hgb 9.3 L Hct 28.7 L MCV 95.3 MCH 30.9 MCHC 32.4 RDW 11.2 L Plt Count 167 MPV 11.6 H Immature Gran % (Auto) 0.3 Neut % (Auto) 45.2 L Lymph % (Auto) 34.4 [place] % (Auto) 14.8 H Eos % (Auto) 4.8 H Baso % (Auto) 0.5 Lymph # (Auto) 1.37 [place] # (Auto) 0.6 Eos # (Auto) 0.2 Baso # (Auto) 0.0 Abs Immat Gran (auto) 0.01 Absolute Neuts (auto) 1.8 Absolute Nucleated RBC 0.000 Nucleated RBC % 0.0 Sodium 134 L 137 Potassium 4.4 4.2 Chloride 104 107 Carbon Dioxide 18 L 22 Anion Gap 12 8 BUN 47 H 41 H Creatinine 1.53 H 1.47 H Estim Creat Clear Calc 26 27 Estimated GFR 33 L 35 L Glucose 132 H 91 Calcium 8.4 8.5 Magnesium 2.2 Total Bilirubin 0.5 AST 37 H ALT 87 H Alkaline Phosphatase 72 Total Creatine Kinase 136 H Total Protein 6.0 L Albumin 3.0 L Urine Color Yellow Urine Appearance Cloudy H Urine pH 5.0 Ur Specific Chloride 1.019 Urine Protein Negative Urine Glucose (UA) Negative Urine Ketones Negative Ur Blood (Man) Negative Urine Nitrate Negative Urine Bilirubin Negative Urine Urobilinogen 0.2 Leukocyte Esterase Rfl 3+ H Urine RBC 0-2 Urine WBC 51-100 H Ur Squamous Epith Cells Moderate Urine Bacteria None seen Urine Casts 3-5 Urine Eosinophils None seen Ur Random Sodium 10 Urine Creatinine 142.0
--- NOTE | 2024-08-31 12:39 | P.DS_ITS ---
DS: Admitting Diagnosis Discharge Date 08/31/24 Admitting Diagnosis Elevated heart rate DS: Discharge Diagnosis Discharge Diagnosis (1) Atrial fibrillation: Qualifiers: Atrial fibrillation type: paroxysmal Qualified Code(s): I48.0 - Paroxysmal atrial fibrillation Code(s): I48.91 - Unspecified atrial fibrillation Status: Acute (2) Hyperthyroidism: Code(s): E05.90 - Thyrotoxicosis, unspecified without thyrotoxic crisis or storm Status: Acute (3) Essential hypertension: Code(s): I10 - Essential (primary) hypertension Status: Acute (4) Anemia: Code(s): D64.9 - Anemia, unspecified Status: Acute (5) Stage 3b chronic kidney disease: Code(s): N18.32 - Chronic kidney disease, stage 3b Status: Acute DS: Summary Hospital Course Reason for hospitalization: 74yo female with HLD, HTN, KUMAR (noncompliant with CPAP), and dementia presents here with an elevated heart rate, nausea, and vomiting. Please see H&P for details. Hospital Course: Patient presented with elevated heart rate. EKG showing AFib RVR, rate 132. CXR showing no acute cardiopulmonary disease. Troponin was <0.012 x 3. TSH low, FT4 elevated consistent with hyperthyroidism. No history of AFib. Camby the hyperthyroidism was causing the AFib. Diltiazem drip started. Oral metoprolol added. Echo showing LV hyperdynamic with EF >70%, mild LV wall thickness, severely enlarged LA and mild valvular disease. Cardiology consulted and appreciate their input. [id number]: 5 (HTN, Age, Gender, CVA) -> Eliquis started. Heart rate became better controlled. She may not convert given the severely enlarged LA. Discussed with Cardiology. Concern for over-correction of her heart rate so Metoprolol advanced and Diltiazem stopped. No previous history of thyroid dysfunction and presumably normal thyroid fxn last year. TSH <0.015, T4 5.95 on 08/27/24. Thyroid ultrasound showing normal thyroid. FT4 is 2- 3x/normal so methimazole 20mg day started. Thyrotropin receptor Ab pending. Pelvic US was unable to visualize the ovaries. Will mirna to follow up with Endocrinology at discharge. She has a normal baseline hgb. Hgb was 11.4 on admission and dropped to 9.4. Leukopenia at 4.4k but plt count normal. B12 and folate normal. Iron level normal with low TIBC and iron sat of 18%. Ferritin normal. Hgb remaining stable in the 9 range. Baseline Cr around 1.4. Cr was 1.3 on admission but climbed to 1.8. Her HCTZ and lisinopril have been on hold here. Eating well here. Related to mild ATN from AFib, hyperthyroidism? Cr improved with IV fluids. She also had mildly elevated LFTs that were present on admission. Mostly AST/ALT and levels were trending down. No abd pain. Probably related to her presenting diagnosis. She has been up ambulating in halls. She feels well and overall did well and was able to be discharged home on 08/31/24. Status at Discharge Cognitive/behavioral status at discharge: stable Time Spent with Patient Time attestation: Total time spent providing and/or coordinating discharge services: 35 minutes Time spent: Greater than 30 minutes Exam Narrative: AF 98.0 128/60 103 14 99% ra Gen - NARD sitting up in chair Chest - CTA bilaterally, nml RR CV - irregularly irregular. Tele showing AFib with rate controlled. Abd - Soft, NT/ND, Positive BS Ext - No pedal edema Neuro - Alert, pleasant but confused. Psych - Nml mood and affect Skin - Warm and dry DS: Data Data Completed and Pending Labs on day of discharge: Labs from last 24 hours 08/31/24 08/30/24 08/30/24 04:09 19:50 16:10 WBC 4.0 L RBC 3.01 L Hgb 9.3 L Hct 28.7 L MCV 95.3 MCH 30.9 MCHC 32.4 RDW 11.2 L Plt Count 167 MPV 11.6 H Immature Gran % (Auto) 0.3 Neut % (Auto) 45.2 L Lymph % (Auto) 34.4 [place] % (Auto) 14.8 H Eos % (Auto) 4.8 H Baso % (Auto) 0.5 Lymph # (Auto) 1.37 [place] # (Auto) 0.6 Eos # (Auto) 0.2 Baso # (Auto) 0.0 Abs Immat Gran (auto) 0.01 Absolute Neuts (auto) 1.8 Absolute Nucleated RBC 0.000 Nucleated RBC % 0.0 Sodium 137 134 L Potassium 4.2 4.4 Chloride 107 104 Carbon Dioxide 22 18 L Anion Gap 8 12 BUN 41 H 47 H Creatinine 1.47 H 1.53 H Estim Creat Clear Calc 27 26 Estimated GFR 35 L 33 L Glucose 91 132 H Calcium 8.5 8.4 Magnesium 2.2 Total Bilirubin 0.5 AST 37 H ALT 87 H Alkaline Phosphatase 72 Total Creatine Kinase 136 H Total Protein 6.0 L Albumin 3.0 L Urine Color Yellow Urine Appearance Cloudy H Urine pH 5.0 Ur Specific [place] 1.019 Urine Protein Negative Urine Glucose (UA) Negative Urine Ketones Negative Ur Blood (Man) Negative Urine Nitrate Negative Urine Bilirubin Negative Urine Urobilinogen 0.2 Leukocyte Esterase Rfl 3+ H Urine RBC 0-2 Urine WBC 51-100 H Ur Squamous Epith Cells Moderate Urine Bacteria None seen Urine Casts 3-5 Urine Eosinophils None seen Ur Random Sodium 10 Urine Creatinine 142.0 Discharge Plan Discharge Attending physician on discharge: Yasir Miller Consulting providers: Romeo Crews Discharging Clinician: Yasir Miller Anticipated Discharge Date/Time: 08/31/24 12:46 Patient Disposition: Home, Self-Care Activity: as tolerated Diet: heart healthy Discharge Instructions: Please monitor heart rate 2-3x/day and notify provider if heart rate is less than 60 or greater than 120 consistently. Take precautions to avoid falls. Rise slowly from a lying or sitting position. Pause before standing or walking. Contact your doctor or call 911 and come to the Emergency Room if you have any type of trauma, lightheadedness with standing or other worrisome symptoms. Avoid NSAIDs (ibuprofen, naproxen, Aleve). Tylenol is safe to take. Follow-up with your primary care provider in 1-2 weeks. Please call for appointment. Follow-up with Cardiology in 3-4 weeks. Please call for an appointment. Follow-up with [facility] in 1-2 weeks. Please call for an appointment. Thank you for using [facility] for your health care needs. Patient Instructions: Antibiotic Form Patient Language: Syriac Stand Alone Forms: General Discharge Information Follow-up/Referrals: Romeo Crews MD [Physician] - Call for Appointment Jud,SUZI Schulz [Primary Care Provider] - Call for Appointment Jose Mon MD [Physician] - Call for Appointment Discharge Medications: New Eliquis 5 mg Tablet 5 mg PO Q12HR Qty: 60 2RF metoprolol tartrate 100 mg tablet 100 mg PO Q12H Qty: 60 2RF methimazole 10 mg tablet 20 mg PO DAILY Qty: 60 2RF Continued rosuvastatin 5 mg tablet See Rx Instructions .ROUTE .COMPLEX Qty: 90 3RF Dose Instruction: TAKE 1 TABLET BY MOUTH EVERY DAY Rx Instructions: TAKE 1 TABLET BY MOUTH EVERY DAY famotidine 20 mg tablet 20 mg PO BID Qty: 180 3RF cholecalciferol (vitamin D3) 50 mcg (2,000 unit) capsule 50 mcg PO DAILY (DME) CPAP Repair See Rx Instructions .Route .MEDSUPPLY Qty: 1 0RF Rx Instructions: Rx: Repair/Replace CPAP machine. Data is not transmitting. If needing to be replaced, switch the patient to a Resmed AirSense 11 AutoPAP with current settings Dx: KUMAR (G47.33) Physician: Dr. Rylee Rolon DO DME: [facility] melatonin 10 mg capsule 10 mg PO HS PRN (Reason: insomnia) alendronate 70 mg tablet 70 mg PO WEEKLY Qty: 4 0RF Rx Instructions: NEEDS APPOINTMENT FOR FURTHER REFILLS Discontinued hydrochlorothiazide 25 mg tablet See Rx Instructions .ROUTE .COMPLEX Qty: 90 3RF Dose Instruction: TAKE 1 TABLET BY MOUTH EVERY DAY Rx Instructions: TAKE 1 TABLET BY MOUTH EVERY DAY lisinopril 20 mg tablet 20 mg PO HS Rx Instructions: TAKE 1 TABLET BY MOUTH EVERY DAY Other Ambulatory Orders: Comprehensive Metabolic Panel (Routine) Timeframe: 1 Week Location: Determined by Patient Ordered By: Yasir Miller Date of admission: 08/27/24 15:57 Primary Care Provider: AnderJazz Admitting Provider: Beltran Akins Attending physician on admission: Beltran Akins Condition: Stable Hospitalist MIPS Heart Failure (Exclusion) Patient has history of Heart Transplant or Left Ventricular Assistive Device?: No IF YES, STOP HERE Heart Failure (Qualifier) Patient has current or prior documentation of LVEF less than or equal to 40%, or mod/servere depressed LVSF?: No IF NO, STOP HERE
[2024-09-03 16:48] LABS: Thyrotropin Receptor Antibody 15.32 IU/L (< OR = 2.00)
[2024-09-04 04:04] LABS: Thyroid Stimulating Immunoglob 186 % baseline (<140)
== END 2024-08-31 14:39 | disposition home or self-care (01) | DRG 310 ==
LOC: ANHED 14:12 → ANHIMU 20:07
PROVIDERS: Emergency Medicine; Physician Assistant; Student in an Organized Health Care Education/Training Program; Admitting Provider General Practice; Emergency Provider Student in an Organized Health Care Education/Training Program; PCP Physician Assistant; Visit Provider Internal Medicine
DX: I48.91 Unspecified atrial fibrillation (principal); E05.90 Thyrotoxicosis, unspecified without thyrotoxic crisis or storm; E78.2 Mixed hyperlipidemia; G47.33 Obstructive sleep apnea (adult) (pediatric); D64.9 Anemia, unspecified; I12.9 Hypertensive chronic kidney disease with stage 1 through stage 4 chronic kidney disease, or unspecified chronic kidney disease; N18.32 Chronic kidney disease, stage 3b; F03.90 Unspecified dementia, unspecified severity, without behavioral disturbance, psychotic disturbance, mood disturbance, and anxiety; I35.0 Nonrheumatic aortic (valve) stenosis
CPT/HCPCS: 36415; 71046; 76536; 76830; 76856; 80048; 80053; 81001; 82550; 82570; 82607; 82728; 82746; 83519; 83540; 83550; 83690; 83735; 84300; 84439; 84443; 84445; 84484; 85025; 85610; 85730; 85999; 93005; 93306; 96374; 96375; 99285; A9270; J2405; J2550; J2765; J7030; J7120

== ENCOUNTER 2024-12-31 10:10 | Outpatient (CLI) | payer MEDICARE, SELFPAY ==
--- NOTE | ~2024-12-31 | MM_ITS ---
EXAMINATION: MM screening sima BI w cody HISTORY: Screening TECHNIQUE: Craniocaudal and mediolateral oblique 3-D tomosynthesis images were obtained and synthetic 2-D images were generated. CAD analysis was submitted and interpreted. COMPARISON: Comparison to multiple prior studies sequentially, with oldest reviewed study dated 12/29. BREAST PARENCHYMAL COMPOSITION: Not dense: There are scattered areas of fibroglandular density. FINDINGS: There is no evidence of suspicious mass, calcification, or architectural distortion to sugg est malignancy in either breast. There has been no suspicious interval change. IMPRESSION: 1. No mammographic evidence of malignancy. 2. Recommend routine screening mammography in one year. BI-RADS Category 1: Negative Reviewed, dictated and finalized at location B.
== END 2024-12-31 10:11 | disposition home or self-care (01) ==
LOC: MICIMG 10:12
PROVIDERS: PCP Physician Assistant; Visit Provider Physician Assistant
DX: Z12.31 Encounter for screening mammogram for malignant neoplasm of breast (principal)
CPT/HCPCS: 77063; 77067